=== PATIENT | male | born 1970 | race Caucasian/White ===

== ENCOUNTER 2018-06-25 23:10 | Emergency (ER) | payer SELFPAY ==
[2018-06-25] MEDS ORDERED: Sodium Chloride 0.9% 1,000 ML IV ONE (23:18)
--- NOTE | 2018-06-25 23:22 | EDM.PDOC ---
ED HPI GENERAL MEDICAL PROBLEM - General Chief Complaint: Diabetic Complaint Stated Complaint: DIABETIC Time Seen by Provider: 06/25/18 23:13 - History of Present Illness INITIAL COMMENTS - FREE TEXT/NARRATIVE: HISTORY AND PHYSICAL: History of present illness: Patient's 47-year-old white male history of insulin dependent diabetes who presents with a concern of hypoglycemic episode paramedics were notified glucagon was given on arrival here patient is alert and oriented 3 with no complaints Review of systems: As per history of present illness and below otherwise all systems reviewed and negative. Past medical history: As per history of present illness and as reviewed below otherwise noncontributory. Surgical history: As per history of present illness and as reviewed below otherwise noncontributory. Social history: No reported history of drug or alcohol abuse. Family history: As per history of present illness and as reviewed below otherwise noncontributory. Physical exam: HEENT: Atraumatic, normocephalic, pupils reactive, negative for conjunctival pallor or scleral icterus, mucous membranes moist, throat clear, neck supple, nontender, trachea midline. Lungs: Clear to auscultation, breath sounds equal bilaterally, chest nontender. Heart: S1S2, regular, negative for clicks, rubs, or JVD. Abdomen: Soft, nondistended, nontender. Negative for masses or hepatosplenomegaly. Negative for costovertebral tenderness. Pelvis: Stable nontender. Genitourinary: Deferred. Rectal: Deferred. Extremities: Atraumatic, negative for cords or calf pain. Neurovascular unremarkable. Neuro: Awake, alert, oriented. Cranial nerves II through XII unremarkable. Cerebellum unremarkable. Motor and sensory unremarkable throughout. Exam nonfocal. Diagnostics: CBC CMP Therapeutics: Saline 1 L bolus Impression: 1 hypoglycemic episode (insulin reaction) Definitive disposition and diagnosis as appropriate pending reevaluation and review of above. - Related Data Allergies Allergy/AdvReac Type Severity Reaction Status Date / Time morphine Allergy Hives Verified 06/25/18 23:24 pregabalin [From Lyrica] Allergy Arrhythmias Verified 06/25/18 23:24 prochlorperazine Allergy Arrhythmias Verified 06/25/18 23:24 [From Compazine] venlafaxine [From Effexor] Allergy Hypotension Verified 06/25/18 23:24 Home Meds: Home Meds Aspirin 1 tab PO DAILY 06/25/18 [History] Calcium Carbonate [Calcium] 1 gm PO DAILY 06/25/18 [History] Losartan Potassium 1 tab PO DAILY 06/25/18 [History] Magnesium Oxide [Magnesium] 1 tab PO DAILY 06/25/18 [History] Testosterone Undecanoate [Aveed] 2 mg IM ASDIRECTED 06/25/18 [History] amLODIPine Besylate [Amlodipine Besylate] 1 tab PO DAILY 06/25/18 [History] cloNIDine [Catapres] 1 tab PO BID 06/25/18 [History] oxyCODONE HCl/Acetaminophen [Oxycodon-Acetaminophen 7.5-300] 0 mg PO ASDIRECTED 06/25/18 [History] ED ROS GENERAL - Review of Systems Review Of Systems: ROS reveals no pertinent complaints other than HPI. ED EXAM GENERAL NO PERIP PULSE - Physical Exam Exam: See Below (See dictation) Course - Vital Signs Last Recorded V/S: Last Vital Signs Temp 36.4 C 06/25/18 23:10 Pulse 109 H 06/25/18 23:10 Resp 18 06/25/18 23:10 BP 189/97 H 06/25/18 23:10 Pulse Ox 99 06/25/18 23:10 - Orders/Labs/Meds Labs: Laboratory Tests 06/25/18 06/25/18 Range/Units 23:30 23:30 WBC 7.74 (4.0-11.0) K/uL RBC 4.01 L (4.50-5.90) M/uL Hgb 11.9 L (13.0-17.0) g/dL Hct 33.6 L (38.0-50.0) % MCV 83.8 (80.0-98.0) fL MCH 29.7 (27.0-32.0) pg MCHC 35.4 (31.0-37.0) g/dL RDW Std Deviation 39.0 (28.0-62.0) fl RDW Coeff of Daria 13 (11.0-15.0) % Plt Count 283 (150-400) K/uL MPV 10.70 (7.40-12.00) fL Neut % (Auto) 70.9 (48.0-80.0) % Lymph % (Auto) 21.7 (16.0-40.0) % [place] % (Auto) 5.7 (0.0-15.0) % Eos % (Auto) 1.4 (0.0-7.0) % Baso % (Auto) 0.3 (0.0-1.5) % Neut # (Auto) 5.5 (1.4-5.7) K/uL Lymph # (Auto) 1.7 (0.6-2.4) K/uL [place] # (Auto) 0.4 (0.0-0.8) K/uL Eos # (Auto) 0.1 (0.0-0.7) K/uL Baso # (Auto) 0.0 (0.0-0.1) K/uL Nucleated RBC % 0.0 /100WBC Nucleated RBCs # 0 K/uL Sodium 140 (136-148) mmol/L Potassium 4.0 (3.5-5.1) mmol/L Chloride 105 (98-107) mmol/L Carbon Dioxide 26.2 (21.0-32.0) mmol/L BUN 26 H (7.0-18.0) mg/dL Creatinine 2.9 H (0.8-1.3) mg/dL Est Cr Clr Drug Dosing 36.35 mL/min Estimated GFR (MDRD) 23.6 ml/min Glucose 200 H (74-106) mg/dL Calcium 8.3 L (8.5-10.1) mg/dL Total Bilirubin 0.6 (0.2-1.0) mg/dL AST 20 (15-37) IU/L ALT 27 (14-63) IU/L Alkaline Phosphatase 168 H (46-116) U/L Total Protein 6.9 (6.4-8.2) g/dL Albumin 3.4 (3.4-5.0) g/dL Globulin 3.5 (2.6-4.0) g/dL Albumin/Globulin Ratio 1.0 (0.9-1.6) Meds: Medications Discontinued Medications Generic Name Dose Route Start Last Admin Trade Name Freq PRN Reason Stop Dose Admin Sodium Chloride 1,000 mls @ 999 mls/hr 06/25/18 23:18 06/25/18 23:39 Normal Saline IV 06/26/18 00:18 999 mls/hr .Bolus ONE Administration Departure - Departure Time of Disposition: 00:41 Disposition: Home, Self-Care 01 Condition: Good Clinical Impression: Hypoglycemia, Insulin reaction - Discharge Information Forms: ED Department Discharge Additional Instructions: The following information is given to patients seen in the emergency department who are being discharged to home. This information is to outline your options for follow-up care. We provide all patients seen in our emergency department with a follow-up referral. The need for follow-up, as well as the timing and circumstances, are variable depending upon the specifics of your emergency department visit. If you don't have a primary care physician on staff, we will provide you with a referral. We always advise you to contact your personal physician following an emergency department visit to inform them of the circumstance of the visit and for follow-up with them and/or the need for any referrals to a consulting specialist. The emergency department will also refer you to a specialist when appropriate. This referral assures that you have the opportunity for followup care with a specialist. All of these measure are taken in an effort to provide you with optimal care, which includes your followup. Under all circumstances we always encourage you to contact your private physician who remains a resource for coordinating your care. When calling for followup care, please make the office aware that this follow-up is from your recent emergency room visit. If for any reason you are refused follow-up, please contact the [facility] emergency department at and asked to speak to the emergency department charge nurse. Accu-Chek 4 times a day as discussed diet as discussed follow-up primary medical doctor return as needed as discussed
== END 2018-06-26 01:10 | disposition home or self-care (01) ==
LOC: MW.ED 23:10
DX: E11.649 Type 2 diabetes mellitus with hypoglycemia without coma (principal); Z88.5 Allergy status to narcotic agent; Z88.8 Allergy status to other drugs, medicaments and biological substances; Z79.82 Long term (current) use of aspirin; Z79.899 Other long term (current) drug therapy
CPT/HCPCS: 36415; 80053; 85025; 96360; 96361; 99283; J7040

== ENCOUNTER 2018-06-30 01:22 | Emergency (ER) | payer SELFPAY ==
[2018-06-30] MEDS ORDERED: Sodium Chloride 0.9% 1,000 ML IV ONE (01:29)
--- NOTE | 2018-06-30 01:35 | EDM.PDOC ---
ED HPI GENERAL MEDICAL PROBLEM - General Chief Complaint: Cardiovascular Problem Stated Complaint: HEAT RACING Time Seen by Provider: 06/30/18 01:35 Source of Information: Reports: Patient - History of Present Illness INITIAL COMMENTS - FREE TEXT/NARRATIVE: HISTORY AND PHYSICAL: History of present illness: [Patient with history of anxiety presents with "racing heart" Prior to arrival he did take his Xanax, after arrival to the emergency room he still states that his heart is racing and he feels short of breath however he is in no distress and heart rate is 109 on EKG Has no other symptoms such as fever nausea vomiting diarrhea constipation chest pain shortness breath headache dizziness palpitation no bowel or urine symptoms He has been sleeping comfortably since shortly after arrival, he has refused insulin we did find that his glucose level was 500 he allowed 3 units of insulin subcutaneous and then refused further insulin ] Review of systems: As per history of present illness and below otherwise all systems reviewed and negative. Past medical history: As per history of present illness and as reviewed below otherwise noncontributory. Surgical history: As per history of present illness and as reviewed below otherwise noncontributory. Social history: No reported history of drug or alcohol abuse. Family history: As per history of present illness and as reviewed below otherwise noncontributory. Physical exam: HEENT: Atraumatic, normocephalic, pupils reactive, negative for conjunctival pallor or scleral icterus, mucous membranes moist, throat clear, neck supple, nontender, trachea midline. Lungs: Clear to auscultation, breath sounds equal bilaterally, chest nontender. Heart: S1S2, regular, negative for clicks, rubs, or JVD. Abdomen: Soft, nondistended, nontender. Negative for masses or hepatosplenomegaly. Negative for costovertebral tenderness. Pelvis: Stable nontender. Genitourinary: Deferred. Rectal: Deferred. Extremities: Atraumatic, negative for cords or calf pain. Neurovascular unremarkable. Neuro: Awake, alert, oriented. Cranial nerves II through XII unremarkable. Cerebellum unremarkable. Motor and sensory unremarkable throughout. Exam nonfocal. Diagnostics: [cbc, cmp, ua, trop, inr chest 1V ekg ] Therapeutics: Regular insulin 10 units IV/10 units subcutaneous-patient refused allowing 3 units of regular insulin subcutaneous Normal saline] Impression: [Hyperglycemia-patient refused treatment Hypertension-improved/resolved Anxiety]-improved/resolved Definitive disposition and diagnosis as appropriate pending reevaluation and review of above. - Related Data Allergies Allergy/AdvReac Type Severity Reaction Status Date / Time morphine Allergy Hives Verified 06/30/18 01:30 pregabalin [From Lyrica] Allergy Arrhythmias Verified 06/30/18 01:30 prochlorperazine Allergy Arrhythmias Verified 06/30/18 01:30 [From Compazine] venlafaxine [From Effexor] Allergy Hypotension Verified 06/30/18 01:30 Home Meds: Home Meds Aspirin 1 tab PO DAILY 06/25/18 [History] Calcium Carbonate [Calcium] 1 gm PO DAILY 06/25/18 [History] Losartan Potassium 1 tab PO DAILY 06/25/18 [History] Magnesium Oxide [Magnesium] 1 tab PO DAILY 06/25/18 [History] Testosterone Undecanoate [Aveed] 2 mg IM ASDIRECTED 06/25/18 [History] amLODIPine Besylate [Amlodipine Besylate] 1 tab PO DAILY 06/25/18 [History] cloNIDine [Catapres] 1 tab PO BID 06/25/18 [History] oxyCODONE HCl/Acetaminophen [Oxycodon-Acetaminophen 7.5-300] 0 mg PO ASDIRECTED 06/25/18 [History] Insulin Glarg,Human.Rec.Analog [Lantus] 20 units SQ DAILY 06/30/18 [History] Past Medical History Cardiovascular History: Reports: Hypertension Genitourinary History: Reports: Renal Disease Endocrine/Metabolic History: Reports: Diabetes, Type I - Infectious Disease History Infectious Disease History: Reports: MRSA - Past Surgical History HEENT Surgical History: Reports: Eye Surgery, Naso-Sinus Surgery GI Surgical History: Reports: Cholecystectomy Musculoskeletal Surgical History: Reports: Carpal Tunnel Social & Family History - Family History Family Medical History: Noncontributory ED ROS GENERAL - Review of Systems Review Of Systems: See Below ED EXAM, GENERAL - Physical Exam Exam: See Below Course - Vital Signs Last Recorded V/S: Last Vital Signs Temp 98.5 F 06/30/18 01:22 Pulse 87 06/30/18 02:37 Resp 18 06/30/18 02:37 BP 125/67 06/30/18 02:37 Pulse Ox 97 06/30/18 02:37 - Orders/Labs/Meds Orders: Active Orders 24 hr Category Date Time Status EKG Documentation Completion [RC] STAT Care 06/30/18 01:30 Active Labs: Laboratory Tests 06/30/18 06/30/18 06/30/18 Range/Units 02:00 02:00 02:00 WBC 6.68 (4.0-11.0) K/uL RBC 3.81 L (4.50-5.90) M/uL Hgb 11.3 L (13.0-17.0) g/dL Hct 32.5 L (38.0-50.0) % MCV 85.3 (80.0-98.0) fL MCH 29.7 (27.0-32.0) pg MCHC 34.8 (31.0-37.0) g/dL RDW Std Deviation 37.1 (28.0-62.0) fl RDW Coeff of Daria 12 (11.0-15.0) % Plt Count 226 (150-400) K/uL MPV 11.60 (7.40-12.00) fL Neut % (Auto) 66.6 (48.0-80.0) % Lymph % (Auto) 23.4 (16.0-40.0) % [place] % (Auto) 8.1 (0.0-15.0) % Eos % (Auto) 1.6 (0.0-7.0) % Baso % (Auto) 0.3 (0.0-1.5) % Neut # (Auto) 4.5 (1.4-5.7) K/uL Lymph # (Auto) 1.6 (0.6-2.4) K/uL [place] # (Auto) 0.5 (0.0-0.8) K/uL Eos # (Auto) 0.1 (0.0-0.7) K/uL Baso # (Auto) 0.0 (0.0-0.1) K/uL INR 0.90 Sodium 135 L (136-148) mmol/L Potassium 4.8 (3.5-5.1) mmol/L Chloride 101 (98-107) mmol/L Carbon Dioxide 28.9 (21.0-32.0) mmol/L BUN 26 H (7.0-18.0) mg/dL Creatinine 2.7 H (0.8-1.3) mg/dL Est Cr Clr Drug Dosing 39.05 mL/min Estimated GFR (MDRD) 25.7 ml/min Glucose 516 H* (74-106) mg/dL Calcium 7.8 L (8.5-10.1) mg/dL Total Bilirubin 0.6 (0.2-1.0) mg/dL AST 26 (15-37) IU/L ALT 33 (14-63) IU/L Alkaline Phosphatase 167 H (46-116) U/L Troponin I < 0.050 (0.000-0.056) ng/mL Total Protein 6.1 L (6.4-8.2) g/dL Albumin 2.9 L (3.4-5.0) g/dL Globulin 3.2 (2.6-4.0) g/dL Albumin/Globulin Ratio 0.9 (0.9-1.6) Meds: Medications Discontinued Medications Generic Name Dose Route Start Last Admin Trade Name Freq PRN Reason Stop Dose Admin Clonidine HCl 0.1 mg 06/30/18 01:37 06/30/18 02:48 Catapres PO 06/30/18 01:38 Not Given ONETIME ONE Sodium Chloride 1,000 mls @ 999 mls/hr 06/30/18 01:29 06/30/18 02:03 Normal Saline IV 06/30/18 02:29 999 mls/hr STAT ONE Administration Insulin Human Regular 10 unit 06/30/18 02:31 06/30/18 02:46 Novolin R IVPUSH 06/30/18 02:32 Not Given ONETIME ONE Protocol Insulin Human Regular 10 unit 06/30/18 02:31 06/30/18 02:45 Novolin R SUBCUT 06/30/18 02:32 3 units NOW STA Administration Protocol Departure - Departure Time of Disposition: 03:49 Disposition: Home, Self-Care 01 Condition: Good Clinical Impression: Hyperglycemia, Anxiety, Hypertension Forms: ED Department Discharge Additional Instructions: The following information is given to patients seen in the emergency department who are being discharged to home. This information is to outline your options for follow-up care. We provide all patients seen in our emergency department with a follow-up referral. The need for follow-up, as well as the timing and circumstances, are variable depending upon the specifics of your emergency department visit. If you don't have a primary care physician on staff, we will provide you with a referral. We always advise you to contact your personal physician following an emergency department visit to inform them of the circumstance of the visit and for follow-up with them and/or the need for any referrals to a consulting specialist. The emergency department will also refer you to a specialist when appropriate. This referral assures that you have the opportunity for follow-up care with a specialist. All of these measure are taken in an effort to provide you with optimal care, which includes your follow-up. Under all circumstances we always encourage you to contact your private physician who remains a resource for coordinating your care. When calling for follow-up care, please make the office aware that this follow-up is from your recent emergency room visit. If for any reason you are refused follow-up, please contact the [facility] emergency department at and asked to speak to the emergency department charge nurse. - My Orders Last 24 Hours: My Active Orders 06/30/18 01:30 EKG Documentation Completion [RC] STAT - Assessment/Plan Last 24 Hours: My Active Orders 06/30/18 01:30 EKG Documentation Completion [RC] STAT
[2018-06-30] MEDS ORDERED: cloNIDine 0.1 MG Tab PO ONE (01:37)
--- NOTE | 2018-06-30 02:15 | CR ---
INDICATION: Chest pain and shortness of breath COMPARISON: None available. FINDINGS: An erect single view of the chest was obtained at 0135 hours. The lungs are clear. No focal or diffuse infiltrates are present. The heart is normal in size. The mediastinum is normal in appearance. The osseous structures are normal in appearance for the patient`s age. IMPRESSION: Normal chest single view. Dictated by David Nur MD @ Jun 30 2018 2:12AM Signed by Dr. David Nur @ Jun 30 2018 2:13AM
[2018-06-30 02:29] LABS: CHLORIDE,CL 101 mmol/L (98-107); SODIUM,NA 135 mmol/L (136-148)
[2018-06-30] MEDS ORDERED: Insulin Regular, Human 100 Units/ML 10 ML Vial IVPUSH ONE (02:31)
[2018-06-30] MEDS ORDERED: Insulin Regular, Human 100 Units/ML 10 ML Vial SUBCUT STA (02:31)
== END 2018-06-30 04:00 | disposition home or self-care (01) ==
LOC: MW.ED 01:22
DX: E10.65 Type 1 diabetes mellitus with hyperglycemia (principal); I10 Essential (primary) hypertension; Z88.6 Allergy status to analgesic agent; Z88.8 Allergy status to other drugs, medicaments and biological substances; Z79.82 Long term (current) use of aspirin; Z79.899 Other long term (current) drug therapy
CPT/HCPCS: 36415; 71045; 80053; 84484; 85025; 85610; 93005; 96360; 99285; J7040; J1815-GY

== ENCOUNTER 2018-07-07 18:58 | Observation (INO) | payer MEDICAID ==
[2018-07-07] MEDS ORDERED: Ondansetron 4 MG/2 ML SDV IVPUSH ONE (19:11)
[2018-07-07] MEDS ORDERED: HYDROmorphone 1 MG/ML Syringe IVPUSH ONE ×2 (19:11→20:42)
[2018-07-07] MEDS ORDERED: Sodium Chloride 0.9% 1,000 ML IV ONE (19:11)
[2018-07-07] MEDS ORDERED: Pantoprazole 40 MG Vial IVPUSH ONE (19:11)
[2018-07-07] MEDS ORDERED: Sodium Chloride 0.9% 2.5 ML Syringe FLUSH PRN (19:11)
[2018-07-07] MEDS ORDERED: Sodium Chloride 0.9% 10 ML Syringe FLUSH PRN (19:11)
--- NOTE | 2018-07-07 19:16 | EDM.PDOC ---
ED HPI GENERAL MEDICAL PROBLEM - General Chief Complaint: Diabetic Complaint Stated Complaint: STOMACH PAIN Time Seen by Provider: 07/07/18 19:04 - History of Present Illness INITIAL COMMENTS - FREE TEXT/NARRATIVE: HISTORY AND PHYSICAL: History of present illness: The patient is a 48 y/o male with a history of type 1 diabetes who gives himself regular insulin dosing as well as sliding scale and also history of hypertension and renal insufficiency, stating that his last GFR was in the 20s, who presents with sudden onset of upper abdominal pain associated with nausea but He was at work this afternoon. The patient says he did not eat any new foods and has no ill contacts and was having a normal day with he began to have upper abdominal discomfort and feeling 6 to his stomach while at work. His boss gave him some herbal therapy that he tried and did not improve. The patient's only GI history is of a cholecystectomy and he has no other issues and takes no medications for that daily. He does have a history of neuropathy and takes daily oxycodone. He does not live here locally and is from [facility] where he has a provider that he sees on a regular basis and he tells me his last hemoglobin A1c was in the mid 8's. The patient describes the pain as deep achy and crampy and it encompasses the entire upper abdominal area and does not localize right or left and there is no lower abdominal pain. He says he feels a little bit bloated and he has not vomited but he feels very nauseated. His been having normal bowel movements without diarrhea black or bloody stools has no flank pain. He has no urinary complaints. He does not take any [id number] meds other than the urge given to him by his boss. He's had no recent fevers upper respiratory symptoms chest pain or shortness of breath. Review of systems: As per history of present illness and below otherwise all systems reviewed and negative. Past medical history: As per history of present illness and as reviewed below otherwise noncontributory. Surgical history: As per history of present illness and as reviewed below otherwise noncontributory. Social history: No reported history of drug or alcohol abuse. Family history: As per history of present illness and as reviewed below otherwise noncontributory. Physical exam: General: Well-developed well-nourished man who is nontoxic and vital signs were noted by me. HEENT: Atraumatic, normocephalic, , negative for conjunctival pallor or scleral icterus, mucous membranes tacky, throat clear, neck supple, nontender, trachea midline. Lungs: Clear to auscultation, breath sounds equal bilaterally, chest nontender. Heart: S1S2, regular rate and rhythm no overt murmurs Abdomen: Soft, nondistended, no sounds are slightly hypoactive and there is no tympany on percussion. There is only minimal tenderness in the upper abdominal area on palpation without rebound or guarding and it is difficult to reproduce the pain. The pain does not localize right or left Negative for masses or hepatosplenomegaly. Negative for costovertebral tenderness. Pelvis: Stable nontender. Genitourinary: Deferred. Rectal: Deferred. Extremities: Atraumatic, negative for cords or calf pain. Neurovascular unremarkable. Neuro: Awake, alert, oriented. Cranial nerves II through XII unremarkable. Cerebellum unremarkable. Motor and sensory unremarkable throughout. Exam nonfocal. Diagnostics: EKG CBC CMP amylase lipase venous blood gas sampling ketones H pylori UA CT scan of the abdomen and pelvis urine culture lactic acid Therapeutics: IV fluids Zofran Protonix Dilaudid Rocephin Patient says he did not take his evening dose of blood pressure medications and this is why he believes his blood pressure is elevated. I will give him a dose of clonidine I discussed with the patient all testing results and have told him that there is no answer for his pain and discomfort other than the distended stomach without bowel obstruction. He is rolling around the bed saying that the pain is not being treated by the Dilaudid. This patient is a chronic pain medication user with Percocet 7.5 on a regular basis for his neuropathy. I will add a lactate level and discuss this case with our surgeon Dr. Abraham. His blood pressure is still elevated because of this. I have offered him observation admission with the hospitalist and he is agreeable. 2046: Case was discussed with Dr. Abraham recommends adding a lactate level and admission to the hospitalist for observation. She does not feel that anything on the CAT scan her labs are worrisome from a surgical standpoint. 2100: Case was discussed with Dr. Moise who is aware that I added a urine culture and would like to treat the patient as a cystitis with abdominal pain. He is aware that the UDS and lactate levels are pending and I will give him a dose of Rocephin. Impression: Persistent abdominal pain, cystitis history of type 1 diabetes Definitive disposition and diagnosis as appropriate pending reevaluation and review of above. Abdominal Pain Score (Numeric/FACES): 8 - Related Data Allergies Allergy/AdvReac Type Severity Reaction Status Date / Time morphine Allergy Hives Verified 07/07/18 19:03 pregabalin [From Lyrica] Allergy Arrhythmias Verified 07/07/18 19:03 prochlorperazine Allergy Arrhythmias Verified 07/07/18 19:03 [From Compazine] venlafaxine [From Effexor] Allergy Hypotension Verified 07/07/18 19:03 Home Meds: Home Meds Aspirin 1 tab PO DAILY 06/25/18 [History] Calcium Carbonate [Calcium] 1 gm PO DAILY 06/25/18 [History] Losartan Potassium 1 tab PO DAILY 06/25/18 [History] Magnesium Oxide [Magnesium] 1 tab PO DAILY 06/25/18 [History] Testosterone Undecanoate [Aveed] 2 mg IM ASDIRECTED 06/25/18 [History] amLODIPine Besylate [Amlodipine Besylate] 1 tab PO DAILY 06/25/18 [History] cloNIDine [Catapres] 1 tab PO BID 06/25/18 [History] oxyCODONE HCl/Acetaminophen [Oxycodon-Acetaminophen 7.5-300] 0 mg PO ASDIRECTED 06/25/18 [History] Insulin Glarg,Human.Rec.Analog [Lantus] 20 units SQ DAILY 06/30/18 [History] Past Medical History Cardiovascular History: Reports: Hypertension Genitourinary History: Reports: Renal Disease Endocrine/Metabolic History: Reports: Diabetes, Type I - Infectious Disease History Infectious Disease History: Reports: MRSA - Past Surgical History HEENT Surgical History: Reports: Eye Surgery, Naso-Sinus Surgery GI Surgical History: Reports: Cholecystectomy Musculoskeletal Surgical History: Reports: Carpal Tunnel Social & Family History - Family History Family Medical History: Noncontributory ED ROS GENERAL - Review of Systems Review Of Systems: ROS reveals no pertinent complaints other than HPI. ED EXAM GENERAL NO PERIP PULSE - Physical Exam Exam: See Below (See dictation) Course - Vital Signs Last Recorded V/S: Last Vital Signs Temp 36.1 C 07/07/18 19:54 Pulse 75 07/07/18 19:54 Resp 18 07/07/18 19:54 BP 230/115 H 07/07/18 20:38 Pulse Ox 96 07/07/18 19:54 - Orders/Labs/Meds Orders: Active Orders 24 hr Category Date Time Status Patient Status [ADT] Stat ADT 07/07/18 21:00 Ordered Blood Glucose Check, Bedside [RC] ONETIME Care 07/07/18 19:10 Active EKG Documentation Completion [RC] STAT Care 07/07/18 19:10 Active CULTURE URINE [RM] Stat Lab 07/07/18 19:20 Received DRUG SCREEN, URINE [URCHEM] Stat Lab 07/07/18 19:22 Received LACTATE WITH REFLEX [BG] Stat Lab 07/07/18 20:39 Ordered Sodium Chloride 0.9% [Normal Saline] 1,000 ml Med 07/07/18 20:45 Active IV ASDIRECTED Sodium Chloride 0.9% [Saline Flush] Med 07/07/18 19:11 Active 10 ml FLUSH ASDIRECTED PRN Sodium Chloride 0.9% [Saline Flush] Med 07/07/18 19:11 Active 2.5 ml FLUSH ASDIRECTED PRN cefTRIAXone [Rocephin in Dextrose,Iso-Osm 1 GM/50 ML] 1 Med 07/07/18 20:59 Ordered gm Premix Bag 1 bag IV ONETIME Saline Lock Insert [OM.PC] Stat Oth 07/07/18 19:10 Ordered Medication Orders Sodium Chloride (Normal Saline) 1,000 mls @ 150 mls/hr IV ASDIRECTED [facility] Last Admin: 07/07/18 20:52 Dose: 150 mls/hr Sodium Chloride (Saline Flush) 10 ml FLUSH ASDIRECTED PRN PRN Reason: Keep Vein Open Sodium Chloride (Saline Flush) 2.5 ml FLUSH ASDIRECTED PRN PRN Reason: Keep Vein Open Labs: Laboratory Tests 07/07/18 07/07/18 07/07/18 Range/Units 19:10 19:10 19:10 WBC 9.40 (4.0-11.0) K/uL RBC 4.49 L (4.50-5.90) M/uL Hgb 13.3 (13.0-17.0) g/dL Hct 36.9 L (38.0-50.0) % MCV 82.2 (80.0-98.0) fL MCH 29.6 (27.0-32.0) pg MCHC 36.0 (31.0-37.0) g/dL RDW Std Deviation 38.0 (28.0-62.0) fl RDW Coeff of Daria 13 (11.0-15.0) % Plt Count 210 (150-400) K/uL MPV 11.30 (7.40-12.00) fL Neut % (Auto) 72.7 (48.0-80.0) % Lymph % (Auto) 22.0 (16.0-40.0) % [place] % (Auto) 4.5 (0.0-15.0) % Eos % (Auto) 0.6 (0.0-7.0) % Baso % (Auto) 0.2 (0.0-1.5) % Neut # (Auto) 6.8 H (1.4-5.7) K/uL Lymph # (Auto) 2.1 (0.6-2.4) K/uL [place] # (Auto) 0.4 (0.0-0.8) K/uL Eos # (Auto) 0.1 (0.0-0.7) K/uL Baso # (Auto) 0.0 (0.0-0.1) K/uL Nucleated RBC % 0.0 /100WBC Nucleated RBCs # 0 K/uL VBG pH 7.35 (7.31-7.41) VBG pCO2 49 H (35-45) mmHG VBG pO2 40 (30-40) mmHG VBG HCO3 27 (22-30) mEq/L VBG Total CO2 25 L (41-51) mmol/L VBG Base Excess 0.5 (-3.0-3.0) Sodium 136 (136-148) mmol/L Potassium 4.1 (3.5-5.1) mmol/L Chloride 98 (98-107) mmol/L Carbon Dioxide 26.0 (21.0-32.0) mmol/L BUN 25 H (7.0-18.0) mg/dL Creatinine 2.6 H (0.8-1.3) mg/dL Est Cr Clr Drug Dosing 40.12 mL/min Estimated GFR (MDRD) 26.7 ml/min Glucose 346 H (74-106) mg/dL Calcium 9.1 (8.5-10.1) mg/dL Total Bilirubin 0.8 (0.2-1.0) mg/dL AST 24 (15-37) IU/L ALT 39 (14-63) IU/L Alkaline Phosphatase 178 H (46-116) U/L Troponin I (0.000-0.056) ng/mL Total Protein 7.9 (6.4-8.2) g/dL Albumin 3.8 (3.4-5.0) g/dL Globulin 4.1 H (2.6-4.0) g/dL Albumin/Globulin Ratio 0.9 (0.9-1.6) Amylase 39 (25-115) U/L Lipase 35 L (73-393) U/L Urine Color Urine Appearance Urine pH (5.0-8.0) Ur Specific [place] (1.001-1.035) Urine Protein (NEGATIVE) mg/dL Urine Glucose (UA) (NEGATIVE) mg/dL Urine Ketones (NEGATIVE) mg/dL Urine Occult Blood (NEGATIVE) Urine Nitrite (NEGATIVE) Urine Bilirubin (NEGATIVE) Urine Urobilinogen (<2.0) EU/dL Ur Leukocyte Esterase (NEGATIVE) Urine RBC (0-2/HPF) Urine WBC (0-5/HPF) Ur Epithelial Cells (NONE-FEW) Urine Bacteria (NEGATIVE) Ketones (NEG) H. pylori IgG Antibody (NEG) 07/07/18 07/07/18 07/07/18 Range/Units 19:10 19:10 19:20 WBC (4.0-11.0) K/uL RBC (4.50-5.90) M/uL Hgb (13.0-17.0) g/dL Hct (38.0-50.0) % MCV (80.0-98.0) fL MCH (27.0-32.0) pg MCHC (31.0-37.0) g/dL RDW Std Deviation (28.0-62.0) fl RDW Coeff of Daria (11.0-15.0) % Plt Count (150-400) K/uL MPV (7.40-12.00) fL Neut % (Auto) (48.0-80.0) % Lymph % (Auto) (16.0-40.0) % [place] % (Auto) (0.0-15.0) % Eos % (Auto) (0.0-7.0) % Baso % (Auto) (0.0-1.5) % Neut # (Auto) (1.4-5.7) K/uL Lymph # (Auto) (0.6-2.4) K/uL [place] # (Auto) (0.0-0.8) K/uL Eos # (Auto) (0.0-0.7) K/uL Baso # (Auto) (0.0-0.1) K/uL Nucleated RBC % /100WBC Nucleated RBCs # K/uL VBG pH (7.31-7.41) VBG pCO2 (35-45) mmHG VBG pO2 (30-40) mmHG VBG HCO3 (22-30) mEq/L VBG Total CO2 (41-51) mmol/L VBG Base Excess (-3.0-3.0) Sodium (136-148) mmol/L Potassium (3.5-5.1) mmol/L Chloride (98-107) mmol/L Carbon Dioxide (21.0-32.0) mmol/L BUN (7.0-18.0) mg/dL Creatinine (0.8-1.3) mg/dL Est Cr Clr Drug Dosing mL/min Estimated GFR (MDRD) ml/min Glucose (74-106) mg/dL Calcium (8.5-10.1) mg/dL Total Bilirubin (0.2-1.0) mg/dL AST (15-37) IU/L ALT (14-63) IU/L Alkaline Phosphatase (46-116) U/L Troponin I (0.000-0.056) ng/mL Total Protein (6.4-8.2) g/dL Albumin (3.4-5.0) g/dL Globulin (2.6-4.0) g/dL Albumin/Globulin Ratio (0.9-1.6) Amylase (25-115) U/L Lipase (73-393) U/L Urine Color YELLOW Urine Appearance CLEAR Urine pH 6.0 (5.0-8.0) Ur Specific [place] 1.010 (1.001-1.035) Urine Protein 100 H (NEGATIVE) mg/dL Urine Glucose (UA) >=1000 (NEGATIVE) mg/dL Urine Ketones NEGATIVE (NEGATIVE) mg/dL Urine Occult Blood SMALL H (NEGATIVE) Urine Nitrite NEGATIVE (NEGATIVE) Urine Bilirubin NEGATIVE (NEGATIVE) Urine Urobilinogen 0.2 (<2.0) EU/dL Ur Leukocyte Esterase NEGATIVE (NEGATIVE) Urine RBC 6-8 (0-2/HPF) Urine WBC 10-15 (0-5/HPF) Ur Epithelial Cells MODERATE (NONE-FEW) Urine Bacteria FEW (NEGATIVE) Ketones NEGATIVE (NEG) H. pylori IgG Antibody NEGATIVE (NEG) 07/07/18 Range/Units 20:01 WBC (4.0-11.0) K/uL RBC (4.50-5.90) M/uL Hgb (13.0-17.0) g/dL Hct (38.0-50.0) % MCV (80.0-98.0) fL MCH (27.0-32.0) pg MCHC (31.0-37.0) g/dL RDW Std Deviation (28.0-62.0) fl RDW Coeff of Daria (11.0-15.0) % Plt Count (150-400) K/uL MPV (7.40-12.00) fL Neut % (Auto) (48.0-80.0) % Lymph % (Auto) (16.0-40.0) % [place] % (Auto) (0.0-15.0) % Eos % (Auto) (0.0-7.0) % Baso % (Auto) (0.0-1.5) % Neut # (Auto) (1.4-5.7) K/uL Lymph # (Auto) (0.6-2.4) K/uL [place] # (Auto) (0.0-0.8) K/uL Eos # (Auto) (0.0-0.7) K/uL Baso # (Auto) (0.0-0.1) K/uL Nucleated RBC % /100WBC Nucleated RBCs # K/uL VBG pH (7.31-7.41) VBG pCO2 (35-45) mmHG VBG pO2 (30-40) mmHG VBG HCO3 (22-30) mEq/L VBG Total CO2 (41-51) mmol/L VBG Base Excess (-3.0-3.0) Sodium (136-148) mmol/L Potassium (3.5-5.1) mmol/L Chloride (98-107) mmol/L Carbon Dioxide (21.0-32.0) mmol/L BUN (7.0-18.0) mg/dL Creatinine (0.8-1.3) mg/dL Est Cr Clr Drug Dosing mL/min Estimated GFR (MDRD) ml/min Glucose (74-106) mg/dL Calcium (8.5-10.1) mg/dL Total Bilirubin (0.2-1.0) mg/dL AST (15-37) IU/L ALT (14-63) IU/L Alkaline Phosphatase (46-116) U/L Troponin I < 0.050 (0.000-0.056) ng/mL Total Protein (6.4-8.2) g/dL Albumin (3.4-5.0) g/dL Globulin (2.6-4.0) g/dL Albumin/Globulin Ratio (0.9-1.6) Amylase (25-115) U/L Lipase (73-393) U/L Urine Color Urine Appearance Urine pH (5.0-8.0) Ur Specific [place] (1.001-1.035) Urine Protein (NEGATIVE) mg/dL Urine Glucose (UA) (NEGATIVE) mg/dL Urine Ketones (NEGATIVE) mg/dL Urine Occult Blood (NEGATIVE) Urine Nitrite (NEGATIVE) Urine Bilirubin (NEGATIVE) Urine Urobilinogen (<2.0) EU/dL Ur Leukocyte Esterase (NEGATIVE) Urine RBC (0-2/HPF) Urine WBC (0-5/HPF) Ur Epithelial Cells (NONE-FEW) Urine Bacteria (NEGATIVE) Ketones (NEG) H. pylori IgG Antibody (NEG) Meds: Medications Generic Name Dose Route Start Last Admin Trade Name Freq PRN Reason Stop Dose Admin Sodium Chloride 1,000 mls @ 150 mls/hr 07/07/18 20:45 07/07/18 20:52 Normal Saline IV 150 mls/hr ASDIRECTED TIA Administration Sodium Chloride 10 ml 07/07/18 19:11 Saline Flush FLUSH ASDIRECTED PRN Keep Vein Open Sodium Chloride 2.5 ml 07/07/18 19:11 Saline Flush FLUSH ASDIRECTED PRN Keep Vein Open Discontinued Medications Generic Name Dose Route Start Last Admin Trade Name Freq PRN Reason Stop Dose Admin Clonidine HCl 0.1 mg 07/07/18 20:17 07/07/18 20:38 Catapres PO 07/07/18 20:18 0.1 mg ONETIME ONE Administration Hydromorphone HCl 1 mg 07/07/18 19:11 07/07/18 19:24 Dilaudid IVPUSH 07/07/18 19:12 1 mg ONETIME ONE Administration Hydromorphone HCl 1 mg 07/07/18 20:42 07/07/18 20:53 Dilaudid IVPUSH 07/07/18 20:43 1 mg ONETIME ONE Administration Sodium Chloride 1,000 mls @ 999 mls/hr 07/07/18 19:11 07/07/18 19:24 Normal Saline IV 07/07/18 20:11 999 mls/hr STAT ONE Administration Ondansetron HCl 4 mg 07/07/18 19:11 07/07/18 19:24 Zofran IVPUSH 07/07/18 19:12 4 mg ONETIME ONE Administration Pantoprazole Sodium 80 mg 07/07/18 19:11 07/07/18 19:24 Protonix Iv IVPUSH 07/07/18 19:12 80 mg .BOLUS ONE Administration Departure - Departure Time of Disposition: 21:02 Disposition: Refer to Observation Condition: Good Clinical Impression: Cystitis, Hyperglycemia Abdominal pain Qualifiers: Abdominal location: upper abdomen, unspecified Qualified Code(s): R10.10 - Upper abdominal pain, unspecified - Discharge Information Referrals: PCP,Unknown [Primary Care Provider] - Forms: ED Department Discharge - My Orders Last 24 Hours: My Active Orders 07/07/18 19:10 Blood Glucose Check, Bedside [RC] ONETIME EKG Documentation Completion [RC] STAT Saline Lock Insert [OM.PC] Stat 07/07/18 19:11 Sodium Chloride 0.9% [Saline Flush] 10 ml FLUSH ASDIRECTED PRN Sodium Chloride 0.9% [Saline Flush] 2.5 ml FLUSH ASDIRECTED PRN 07/07/18 19:20 CULTURE URINE [RM] Stat 07/07/18 19:22 DRUG SCREEN, URINE [URCHEM] Stat 07/07/18 20:39 LACTATE WITH REFLEX [BG] Stat 07/07/18 20:45 Sodium Chloride 0.9% [Normal Saline] 1,000 ml IV ASDIRECTED 07/07/18 20:59 cefTRIAXone [Rocephin in Dextrose,Iso-Osm 1 GM/50 ML] 1 gm Premix Bag 1 bag IV ONETIME 07/07/18 21:00 Patient Status [ADT] Stat - Assessment/Plan Last 24 Hours: My Active Orders 07/07/18 19:10 Blood Glucose Check, Bedside [RC] ONETIME EKG Documentation Completion [RC] STAT Saline Lock Insert [OM.PC] Stat 07/07/18 19:11 Sodium Chloride 0.9% [Saline Flush] 10 ml FLUSH ASDIRECTED PRN Sodium Chloride 0.9% [Saline Flush] 2.5 ml FLUSH ASDIRECTED PRN 07/07/18 19:20 CULTURE URINE [RM] Stat 07/07/18 19:22 DRUG SCREEN, URINE [URCHEM] Stat 07/07/18 20:39 LACTATE WITH REFLEX [BG] Stat 07/07/18 20:45 Sodium Chloride 0.9% [Normal Saline] 1,000 ml IV ASDIRECTED 07/07/18 20:59 cefTRIAXone [Rocephin in Dextrose,Iso-Osm 1 GM/50 ML] 1 gm Premix Bag 1 bag IV ONETIME 07/07/18 21:00 Patient Status [ADT] Stat
[2018-07-07] MEDS ORDERED: cloNIDine 0.1 MG Tab PO ONE ×2 (20:17→22:39)
--- NOTE | 2018-07-07 20:24 | CT ---
INDICATION: Upper abdominal pain, diabetes. TECHNIQUE: CT abdomen and pelvis without contrast. COMPARISON: None. FINDINGS: Lower chest: Unremarkable. Liver: Normal in contour without focal lesion. Gallbladder and bile ducts: Status post cholecystectomy with mild intrahepatic biliary dilatation. Normal diameter of the common duct. Pancreas: Moderate pancreatic atrophy. Spleen: Normal in size. No masses. Adrenal glands: Normal in size. No nodules. Kidneys: Normal in contour without hydronephrosis. 1 millimeter nonobstructing stone lower pole left kidney. GI tract: Moderate distention of the stomach without discrete abnormality. No dilated loops of large or small intestine. Moderate amount of stool within the colon. Appendix unremarkable. Vasculature: Atherosclerosis. Pelvis: Slight wall thickening gallbladder, probably due to incomplete distention. Calcification of the seminal vesicles. Bones: Degenerative disc disease L5-S1. IMPRESSION: 1. No dilated bowel or localizing inflammation 2. Status post cholecystectomy with mild intrahepatic biliary dilatation. This could represent postcholecystectomy physiology, however correlation with liver function studies suggested. If there is a cholestatic picture, MRCP may have improved characterization. Please note that all CT scans at this facility use dose modulation, iterative reconstruction, and/or weight-based dosing when appropriate to reduce radiation dose to as low as reasonably achievable. Dictated by Doron Fung MD @ Jul 07 2018 8:03PM Signed by Dr. Doron Fung @ Jul 07 2018 8:23PM
[2018-07-07] MEDS: Sodium Chloride 0.9% 1,000 ML IV SCH (20:52)
[2018-07-07] MEDS ORDERED: cefTRIAXone 1 GM in Premix Bag 1 BAG IV ONE (20:59)
--- NOTE | 2018-07-07 21:32 | PCM.HP ---
H&P History of Present Illness - General Date of Service: 07/07/18 Admit Problem/Dx: Admission Diagnosis/Problem Admission Diagnosis/Problem Abdominal pain - History of Present Illness Initial Comments - Free Text/Narative: 48 yo male with pmh of DM, HTN, diabetic nephropathy and neuropathy who presents with one day history of abdominal pain and nausea that started at 4 pm at work today. He describes the pain as burning in the midabdomen. that radiates to the upper, lower abdomen and flank. He denies any constipation or diarrhea. He denies any fevers. Abdominal Pain Score (Numeric/FACES): 8 - Related Data Allergies/Adverse Reactions: Allergies Allergy/AdvReac Type Severity Reaction Status Date / Time morphine Allergy Hives Verified 07/07/18 19:03 pregabalin [From Lyrica] Allergy Arrhythmias Verified 07/07/18 19:03 prochlorperazine Allergy Arrhythmias Verified 07/07/18 19:03 [From Compazine] venlafaxine [From Effexor] Allergy Hypotension Verified 07/07/18 19:03 Home Medications: Home Meds Aspirin 81 mg PO DAILY 06/25/18 [History] Calcium Carbonate [Calcium] 1,000 mg PO DAILY 06/25/18 [History] Losartan Potassium 25 mg PO DAILY 06/25/18 [History] Magnesium Oxide [Magnesium] 400 mg PO DAILY 06/25/18 [History] amLODIPine Besylate [Amlodipine Besylate] 10 mg PO DAILY 06/25/18 [History] Insulin Glarg,Human.Rec.Analog [Lantus] 30 units SQ DAILY 06/30/18 [History] cloNIDine [Catapres] 0.1 mg PO DAILY@1600 07/07/18 [History] cloNIDine [Catapres] 0.2 mg PO BID 07/07/18 [History] ALPRAZolam [Alprazolam] 0.5 mg PO BID PRN 07/08/18 [History] Ergocalciferol (Vitamin D2) [Vitamin D2] 50,000 unit PO WEEKLY 07/08/18 [History ] Insulin Lispro [HumaLOG] 6 units SUBCUT TIDAC 07/08/18 [History] Testosterone Cypionate [Depo-Testosterone] 200 mg IM Q14D 07/08/18 [History] oxyCODONE HCl [Oxycodone HCl] 20 mg PO .SIX TIMES DAILY 07/08/18 [History] Cephalexin [Keflex] 500 mg PO BID 2 Days #4 capsule 07/09/18 [Rx] Ondansetron [Zofran ODT] 4 mg PO Q6H PRN 5 Days #20 tab.dis 07/09/18 [Rx] Past Medical History Cardiovascular History: Reports: Hypertension Genitourinary History: Reports: Renal Disease Endocrine/Metabolic History: Reports: Diabetes, Type I - Infectious Disease History Infectious Disease History: Reports: MRSA - Past Surgical History HEENT Surgical History: Reports: Eye Surgery, Naso-Sinus Surgery GI Surgical History: Reports: Cholecystectomy Musculoskeletal Surgical History: Reports: Carpal Tunnel Social & Family History - Family History Family Medical History: Noncontributory - Tobacco Use Smoking Status *Q: Never Smoker - Caffeine Use Caffeine Use: Reports: Coffee H&P Review of Systems - Review of Systems: Review Of Systems: ROS reveals no pertinent complaints other than HPI. Exam - Exam Exam: See Below - Vital Signs Vital Signs: Last Vital Signs Temp 36.1 C 07/07/18 19:54 Pulse 75 07/07/18 19:54 Resp 18 07/07/18 19:54 BP 230/115 H 07/07/18 20:38 Pulse Ox 96 07/07/18 19:54 Weight: 81.8 kg - Exam General: Alert, Oriented HEENT: Mucosa Moist & [place] Neck: Supple, Trachea Midline Lungs: Clear to Auscultation, Normal Respiratory Effort Cardiovascular: Regular Rate, Regular Rhythm GI/Abdominal Exam: Normal Bowel Sounds, Soft, No Distention, Tender (to deep palpation of all four quadrants). No: Guarding, Rigid, Rebound Extremities: Non-Tender, No Pedal Edema Skin: Warm, Dry, Intact - Patient Data Lab Results Last 24 hrs: Laboratory Results - last 24 hr 07/07/18 07/07/18 07/07/18 Range/Units 19:10 19:10 19:10 WBC 9.40 (4.0-11.0) K/uL RBC 4.49 L (4.50-5.90) M/uL Hgb 13.3 (13.0-17.0) g/dL Hct 36.9 L (38.0-50.0) % MCV 82.2 (80.0-98.0) fL MCH 29.6 (27.0-32.0) pg MCHC 36.0 (31.0-37.0) g/dL RDW Std Deviation 38.0 (28.0-62.0) fl RDW Coeff of Daria 13 (11.0-15.0) % Plt Count 210 (150-400) K/uL MPV 11.30 (7.40-12.00) fL Neut % (Auto) 72.7 (48.0-80.0) % Lymph % (Auto) 22.0 (16.0-40.0) % [place] % (Auto) 4.5 (0.0-15.0) % Eos % (Auto) 0.6 (0.0-7.0) % Baso % (Auto) 0.2 (0.0-1.5) % Neut # (Auto) 6.8 H (1.4-5.7) K/uL Lymph # (Auto) 2.1 (0.6-2.4) K/uL [place] # (Auto) 0.4 (0.0-0.8) K/uL Eos # (Auto) 0.1 (0.0-0.7) K/uL Baso # (Auto) 0.0 (0.0-0.1) K/uL Nucleated RBC % 0.0 /100WBC Nucleated RBCs # 0 K/uL VBG pH 7.35 (7.31-7.41) VBG pCO2 49 H (35-45) mmHG VBG pO2 40 (30-40) mmHG VBG HCO3 27 (22-30) mEq/L VBG Total CO2 25 L (41-51) mmol/L VBG Base Excess 0.5 (-3.0-3.0) Lactate (0.20-2.00) mmol/L Sodium 136 (136-148) mmol/L Potassium 4.1 (3.5-5.1) mmol/L Chloride 98 (98-107) mmol/L Carbon Dioxide 26.0 (21.0-32.0) mmol/L BUN 25 H (7.0-18.0) mg/dL Creatinine 2.6 H (0.8-1.3) mg/dL Est Cr Clr Drug Dosing 40.12 mL/min Estimated GFR (MDRD) 26.7 ml/min Glucose 346 H (74-106) mg/dL Calcium 9.1 (8.5-10.1) mg/dL Total Bilirubin 0.8 (0.2-1.0) mg/dL AST 24 (15-37) IU/L ALT 39 (14-63) IU/L Alkaline Phosphatase 178 H (46-116) U/L Troponin I (0.000-0.056) ng/mL Total Protein 7.9 (6.4-8.2) g/dL Albumin 3.8 (3.4-5.0) g/dL Globulin 4.1 H (2.6-4.0) g/dL Albumin/Globulin Ratio 0.9 (0.9-1.6) Amylase 39 (25-115) U/L Lipase 35 L (73-393) U/L Urine Color Urine Appearance Urine pH (5.0-8.0) Ur Specific [place] (1.001-1.035) Urine Protein (NEGATIVE) mg/dL Urine Glucose (UA) (NEGATIVE) mg/dL Urine Ketones (NEGATIVE) mg/dL Urine Occult Blood (NEGATIVE) Urine Nitrite (NEGATIVE) Urine Bilirubin (NEGATIVE) Urine Urobilinogen (<2.0) EU/dL Ur Leukocyte Esterase (NEGATIVE) Urine RBC (0-2/HPF) Urine WBC (0-5/HPF) Ur Epithelial Cells (NONE-FEW) Urine Bacteria (NEGATIVE) Urine Opiates Screen (NEGATIVE) Ur Oxycodone Screen (NEGATIVE) Urine Methadone Screen (NEGATIVE) Ur Barbiturates Screen (NEGATIVE) Ur Phencyclidine Scrn (NEGATIVE) Ur Amphetamine Screen (NEGATIVE) U Methamphetamines Scrn (NEGATIVE) U Benzodiazepines Scrn (NEGATIVE) U Cocaine Metab Screen (NEGATIVE) U Marijuana (THC) Screen (NEGATIVE) Ketones (NEG) H. pylori IgG Antibody (NEG) 07/07/18 07/07/18 07/07/18 Range/Units 19:10 19:10 19:20 WBC (4.0-11.0) K/uL RBC (4.50-5.90) M/uL Hgb (13.0-17.0) g/dL Hct (38.0-50.0) % MCV (80.0-98.0) fL MCH (27.0-32.0) pg MCHC (31.0-37.0) g/dL RDW Std Deviation (28.0-62.0) fl RDW Coeff of Daria (11.0-15.0) % Plt Count (150-400) K/uL MPV (7.40-12.00) fL Neut % (Auto) (48.0-80.0) % Lymph % (Auto) (16.0-40.0) % [place] % (Auto) (0.0-15.0) % Eos % (Auto) (0.0-7.0) % Baso % (Auto) (0.0-1.5) % Neut # (Auto) (1.4-5.7) K/uL Lymph # (Auto) (0.6-2.4) K/uL [place] # (Auto) (0.0-0.8) K/uL Eos # (Auto) (0.0-0.7) K/uL Baso # (Auto) (0.0-0.1) K/uL Nucleated RBC % /100WBC Nucleated RBCs # K/uL VBG pH (7.31-7.41) VBG pCO2 (35-45) mmHG VBG pO2 (30-40) mmHG VBG HCO3 (22-30) mEq/L VBG Total CO2 (41-51) mmol/L VBG Base Excess (-3.0-3.0) Lactate (0.20-2.00) mmol/L Sodium (136-148) mmol/L Potassium (3.5-5.1) mmol/L Chloride (98-107) mmol/L Carbon Dioxide (21.0-32.0) mmol/L BUN (7.0-18.0) mg/dL Creatinine (0.8-1.3) mg/dL Est Cr Clr Drug Dosing mL/min Estimated GFR (MDRD) ml/min Glucose (74-106) mg/dL Calcium (8.5-10.1) mg/dL Total Bilirubin (0.2-1.0) mg/dL AST (15-37) IU/L ALT (14-63) IU/L Alkaline Phosphatase (46-116) U/L Troponin I (0.000-0.056) ng/mL Total Protein (6.4-8.2) g/dL Albumin (3.4-5.0) g/dL Globulin (2.6-4.0) g/dL Albumin/Globulin Ratio (0.9-1.6) Amylase (25-115) U/L Lipase (73-393) U/L Urine Color YELLOW Urine Appearance CLEAR Urine pH 6.0 (5.0-8.0) Ur Specific [place] 1.010 (1.001-1.035) Urine Protein 100 H (NEGATIVE) mg/dL Urine Glucose (UA) >=1000 (NEGATIVE) mg/dL Urine Ketones NEGATIVE (NEGATIVE) mg/dL Urine Occult Blood SMALL H (NEGATIVE) Urine Nitrite NEGATIVE (NEGATIVE) Urine Bilirubin NEGATIVE (NEGATIVE) Urine Urobilinogen 0.2 (<2.0) EU/dL Ur Leukocyte Esterase NEGATIVE (NEGATIVE) Urine RBC 6-8 (0-2/HPF) Urine WBC 10-15 (0-5/HPF) Ur Epithelial Cells MODERATE (NONE-FEW) Urine Bacteria FEW (NEGATIVE) Urine Opiates Screen (NEGATIVE) Ur Oxycodone Screen (NEGATIVE) Urine Methadone Screen (NEGATIVE) Ur Barbiturates Screen (NEGATIVE) Ur Phencyclidine Scrn (NEGATIVE) Ur Amphetamine Screen (NEGATIVE) U Methamphetamines Scrn (NEGATIVE) U Benzodiazepines Scrn (NEGATIVE) U Cocaine Metab Screen (NEGATIVE) U Marijuana (THC) Screen (NEGATIVE) Ketones NEGATIVE (NEG) H. pylori IgG Antibody NEGATIVE (NEG) 07/07/18 07/07/18 07/07/18 Range/Units 19:22 20:01 21:01 WBC (4.0-11.0) K/uL RBC (4.50-5.90) M/uL Hgb (13.0-17.0) g/dL Hct (38.0-50.0) % MCV (80.0-98.0) fL MCH (27.0-32.0) pg MCHC (31.0-37.0) g/dL RDW Std Deviation (28.0-62.0) fl RDW Coeff of [place]aria (11.0-15.0) % Plt Count (150-400) K/uL MPV (7.40-12.00) fL Neut % (Auto) (48.0-80.0) % Lymph % (Auto) (16.0-40.0) % [place] % (Auto) (0.0-15.0) % Eos % (Auto) (0.0-7.0) % Baso % (Auto) (0.0-1.5) % Neut # (Auto) (1.4-5.7) K/uL Lymph # (Auto) (0.6-2.4) K/uL [place] # (Auto) (0.0-0.8) K/uL Eos # (Auto) (0.0-0.7) K/uL Baso # (Auto) (0.0-0.1) K/uL Nucleated RBC % /100WBC Nucleated RBCs # K/uL VBG pH (7.31-7.41) VBG pCO2 (35-45) mmHG VBG pO2 (30-40) mmHG VBG HCO3 (22-30) mEq/L VBG Total CO2 (41-51) mmol/L VBG Base Excess (-3.0-3.0) Lactate 0.9 (0.20-2.00) mmol/L Sodium (136-148) mmol/L Potassium (3.5-5.1) mmol/L Chloride (98-107) mmol/L Carbon Dioxide (21.0-32.0) mmol/L BUN (7.0-18.0) mg/dL Creatinine (0.8-1.3) mg/dL Est Cr Clr Drug Dosing mL/min Estimated GFR (MDRD) ml/min Glucose (74-106) mg/dL Calcium (8.5-10.1) mg/dL Total Bilirubin (0.2-1.0) mg/dL AST (15-37) IU/L ALT (14-63) IU/L Alkaline Phosphatase (46-116) U/L Troponin I < 0.050 (0.000-0.056) ng/mL Total Protein (6.4-8.2) g/dL Albumin (3.4-5.0) g/dL Globulin (2.6-4.0) g/dL Albumin/Globulin Ratio (0.9-1.6) Amylase (25-115) U/L Lipase (73-393) U/L Urine Color Urine Appearance Urine pH (5.0-8.0) Ur Specific [place] (1.001-1.035) Urine Protein (NEGATIVE) mg/dL Urine Glucose (UA) (NEGATIVE) mg/dL Urine Ketones (NEGATIVE) mg/dL Urine Occult Blood (NEGATIVE) Urine Nitrite (NEGATIVE) Urine Bilirubin (NEGATIVE) Urine Urobilinogen (<2.0) EU/dL Ur Leukocyte Esterase (NEGATIVE) Urine RBC (0-2/HPF) Urine WBC (0-5/HPF) Ur Epithelial Cells (NONE-FEW) Urine Bacteria (NEGATIVE) Urine Opiates Screen NEGATIVE (NEGATIVE) Ur Oxycodone Screen POSITIVE (NEGATIVE) Urine Methadone Screen NEGATIVE (NEGATIVE) Ur Barbiturates Screen NEGATIVE (NEGATIVE) Ur Phencyclidine Scrn NEGATIVE (NEGATIVE) Ur Amphetamine Screen NEGATIVE (NEGATIVE) U Methamphetamines Scrn NEGATIVE (NEGATIVE) U Benzodiazepines Scrn NEGATIVE (NEGATIVE) U Cocaine Metab Screen NEGATIVE (NEGATIVE) U Marijuana (THC) Screen NEGATIVE (NEGATIVE) Ketones (NEG) H. pylori IgG Antibody (NEG) Result Diagrams: 07/09/18 06:10 07/09/18 05:50 Problem List Initiated/Reviewed/Updated: Yes Orders Last 24hrs: Active Orders 24 hr Category Date Time Status Patient Status [ADT] Stat ADT 07/07/18 21:00 Active Blood Glucose Check, Bedside [RC] ONETIME Care 07/07/18 19:10 Active Blood Glucose Check, Bedside [RC] Q8HR Care 07/07/18 21:25 Ordered EKG Documentation Completion [RC] STAT Care 07/07/18 19:10 Active CULTURE URINE [RM] Stat Lab 07/07/18 19:20 Received Calcium Carbonate [Calcium] Med 07/08/18 09:00 Ordered 1 gm PO DAILY Insulin Aspart [NovoLOG] Med 07/07/18 21:30 Ordered See Protocol SUBCUT Q6H Insulin Glarg,Human.Rec.Analog Med 07/08/18 09:00 Ordered 20 units SQ DAILY Sodium Chloride 0.9% [Normal Saline] 1,000 ml Med 07/07/18 20:45 Active IV ASDIRECTED Sodium Chloride 0.9% [Saline Flush] Med 07/07/18 19:11 Active 10 ml FLUSH ASDIRECTED PRN Sodium Chloride 0.9% [Saline Flush] Med 07/07/18 19:11 Active 2.5 ml FLUSH ASDIRECTED PRN amLODIPine Besylate Med 07/08/18 09:00 Ordered 1 tab PO DAILY cefTRIAXone [Rocephin in Dextrose,Iso-Osm 1 GM/50 ML] 1 Med 07/07/18 20:59 Active gm Premix Bag 1 bag IV ONETIME cefTRIAXone [Rocephin] 1 gm Med 07/08/18 21:30 Ordered Sodium Chloride 0.9% [Normal Saline] 50 ml IV Q24H cloNIDine [Catapres] Med 07/08/18 09:00 Ordered 1 tab PO BID Saline Lock Insert [OM.PC] Stat Oth 07/07/18 19:10 Ordered Medication Orders Clonidine HCl (Catapres) mg PO BID TIA Sodium Chloride (Normal Saline) 1,000 mls @ 150 mls/hr IV ASDIRECTED TIA Last Admin: 07/07/18 20:52 Dose: 150 mls/hr Ceftriaxone Sodium/Dextrose 1 (gm/ Premix) 50 mls @ 100 mls/hr IV ONETIME ONE Stop: 07/07/18 21:28 Ceftriaxone Sodium 1 gm/ (Sodium Chloride) 50 mls @ 100 mls/hr IV Q24H TIA Insulin Aspart (Novolog) 0 unit SUBCUT Q6H TIA; Protocol Non-Formulary Medication (Amlodipine Besylate) 1 tab PO DAILY TIA Non-Formulary Medication (Calcium Carbonate [Calcium]) 1 gm PO DAILY TIA Non-Formulary Medication (Insulin Glarg,Human.Rec.Analog) 20 units SQ DAILY TIA Sodium Chloride (Saline Flush) 10 ml FLUSH ASDIRECTED PRN PRN Reason: Keep Vein Open Sodium Chloride (Saline Flush) 2.5 ml FLUSH ASDIRECTED PRN PRN Reason: Keep Vein Open Assessment/Plan Comment:: 48 yo male admitted for gastritis and UTI. Treating with IV rocephin and will place on bowel rest with prn antiemetics.
[2018-07-07] MEDS ORDERED: cloNIDine 0.1 MG Tab PO SCH (23:00)
[2018-07-07] MEDS: oxyCODONE 5 MG Tab PO PRN (23:15)
[2018-07-07] MEDS: Ondansetron 4 MG/2 ML SDV IVPUSH PRN (23:40)
[2018-07-08] MEDS: Insulin Aspart 100 Units/ML 3 ML Pen SUBCUT SCH ×5 (00:24→21:03)
[2018-07-08] MEDS ORDERED: oxyCODONE 5 MG Tab PO ONE (03:47)
[2018-07-08] MEDS ORDERED: cloNIDine 0.1 MG Tab PO ONE (03:49)
[2018-07-08] MEDS: Ondansetron 4 MG/2 ML SDV IVPUSH PRN ×2 (05:25→09:13)
[2018-07-08] MEDS ORDERED: cloNIDine 0.1 MG Tab PO SCH ×2 (09:00→21:00)
[2018-07-08] MEDS ORDERED: AMLODIPINE BESYLATE PO SCH (09:00)
[2018-07-08] MEDS ORDERED: INSULIN GLARG HUMAN REC ANALOG 20 UNIT SQ SCH (09:00)
[2018-07-08] MEDS ORDERED: CALCIUM CARBONATE PO SCH (09:00)
[2018-07-08] MEDS: oxyCODONE 5 MG Tab PO PRN ×3 (09:09→20:59)
[2018-07-08] MEDS: Pantoprazole 40 MG in Sodium Chloride 0.9% 10 ML IVPUSH SCH (10:40)
[2018-07-08] MEDS: Sodium Chloride 0.9% 1,000 ML IV SCH ×2 (10:41→16:55)
--- NOTE | 2018-07-08 10:55 | PCM.PN ---
- General Info Date of Service: 07/08/18 Subjective Update: The patient is a 48 year old male who was admitted for abdominal pain. He reports he is still having LUQ abdominal pain with nausea. He denies diarrhea, constipation, last bm was yesterday, and denies black/bloody stools. He denies chest pain, shortness of breath, or fever/chills. He missed his blood pressure medications yesterday and came in with elevated BP. Blood pressure has improved overnight. - Review of Systems General: Reports: No Symptoms HEENT: Reports: No Symptoms Pulmonary: Reports: No Symptoms Cardiovascular: Reports: No Symptoms Gastrointestinal: Reports: Abdominal Pain, Nausea. Denies: Constipation, Diarrhea, Vomiting Genitourinary: Reports: No Symptoms Musculoskeletal: Reports: No Symptoms Skin: Reports: No Symptoms Neurological: Reports: No Symptoms Psychiatric: Reports: No Symptoms - Patient Data Vitals - Most Recent: Last Vital Signs Temp 98.2 F 07/08/18 07:39 Pulse 83 07/08/18 07:39 Resp 16 07/08/18 07:39 BP 179/81 H 07/08/18 07:39 Pulse Ox 97 07/08/18 07:39 Weight - Most Recent: 80.467 kg Lab Results Last 24 Hours: Laboratory Results - last 24 hr 07/07/18 07/07/18 07/07/18 Range/Units 19:10 19:10 19:10 WBC 9.40 (4.0-11.0) K/uL RBC 4.49 L (4.50-5.90) M/uL Hgb 13.3 (13.0-17.0) g/dL Hct 36.9 L (38.0-50.0) % MCV 82.2 (80.0-98.0) fL MCH 29.6 (27.0-32.0) pg MCHC 36.0 (31.0-37.0) g/dL RDW Std Deviation 38.0 (28.0-62.0) fl RDW Coeff of Daria 13 (11.0-15.0) % Plt Count 210 (150-400) K/uL MPV 11.30 (7.40-12.00) fL Neut % (Auto) 72.7 (48.0-80.0) % Lymph % (Auto) 22.0 (16.0-40.0) % Simpson % (Auto) 4.5 (0.0-15.0) % Eos % (Auto) 0.6 (0.0-7.0) % Baso % (Auto) 0.2 (0.0-1.5) % Neut # (Auto) 6.8 H (1.4-5.7) K/uL Lymph # (Auto) 2.1 (0.6-2.4) K/uL Simpson # (Auto) 0.4 (0.0-0.8) K/uL Eos # (Auto) 0.1 (0.0-0.7) K/uL Baso # (Auto) 0.0 (0.0-0.1) K/uL Nucleated RBC % 0.0 /100WBC Nucleated RBCs # 0 K/uL VBG pH 7.35 (7.31-7.41) VBG pCO2 49 H (35-45) mmHG VBG pO2 40 (30-40) mmHG VBG HCO3 27 (22-30) mEq/L VBG Total CO2 25 L (41-51) mmol/L VBG Base Excess 0.5 (-3.0-3.0) Lactate (0.20-2.00) mmol/L Sodium 136 (136-148) mmol/L Potassium 4.1 (3.5-5.1) mmol/L Chloride 98 (98-107) mmol/L Carbon Dioxide 26.0 (21.0-32.0) mmol/L BUN 25 H (7.0-18.0) mg/dL Creatinine 2.6 H (0.8-1.3) mg/dL Est Cr Clr Drug Dosing 40.12 mL/min Estimated GFR (MDRD) 26.7 ml/min Glucose 346 H (74-106) mg/dL POC Glucose (60-110) mg/dL Calcium 9.1 (8.5-10.1) mg/dL Total Bilirubin 0.8 (0.2-1.0) mg/dL AST 24 (15-37) IU/L ALT 39 (14-63) IU/L Alkaline Phosphatase 178 H (46-116) U/L Troponin I (0.000-0.056) ng/mL Total Protein 7.9 (6.4-8.2) g/dL Albumin 3.8 (3.4-5.0) g/dL Globulin 4.1 H (2.6-4.0) g/dL Albumin/Globulin Ratio 0.9 (0.9-1.6) Amylase 39 (25-115) U/L Lipase 35 L (73-393) U/L Urine Color Urine Appearance Urine pH (5.0-8.0) Ur Specific Hester (1.001-1.035) Urine Protein (NEGATIVE) mg/dL Urine Glucose (UA) (NEGATIVE) mg/dL Urine Ketones (NEGATIVE) mg/dL Urine Occult Blood (NEGATIVE) Urine Nitrite (NEGATIVE) Urine Bilirubin (NEGATIVE) Urine Urobilinogen (<2.0) EU/dL Ur Leukocyte Esterase (NEGATIVE) Urine RBC (0-2/HPF) Urine WBC (0-5/HPF) Ur Epithelial Cells (NONE-FEW) Urine Bacteria (NEGATIVE) Urine Opiates Screen (NEGATIVE) Ur Oxycodone Screen (NEGATIVE) Urine Methadone Screen (NEGATIVE) Ur Barbiturates Screen (NEGATIVE) Ur Phencyclidine Scrn (NEGATIVE) Ur Amphetamine Screen (NEGATIVE) U Methamphetamines Scrn (NEGATIVE) U Benzodiazepines Scrn (NEGATIVE) U Cocaine Metab Screen (NEGATIVE) U Marijuana (THC) Screen (NEGATIVE) Ketones (NEG) H. pylori IgG Antibody (NEG) 07/07/18 07/07/18 07/07/18 Range/Units 19:10 19:10 19:20 WBC (4.0-11.0) K/uL RBC (4.50-5.90) M/uL Hgb (13.0-17.0) g/dL Hct (38.0-50.0) % MCV (80.0-98.0) fL MCH (27.0-32.0) pg MCHC (31.0-37.0) g/dL RDW Std Deviation (28.0-62.0) fl RDW Coeff of Daria (11.0-15.0) % Plt Count (150-400) K/uL MPV (7.40-12.00) fL Neut % (Auto) (48.0-80.0) % Lymph % (Auto) (16.0-40.0) % Simpson % (Auto) (0.0-15.0) % Eos % (Auto) (0.0-7.0) % Baso % (Auto) (0.0-1.5) % Neut # (Auto) (1.4-5.7) K/uL Lymph # (Auto) (0.6-2.4) K/uL Simpson # (Auto) (0.0-0.8) K/uL Eos # (Auto) (0.0-0.7) K/uL Baso # (Auto) (0.0-0.1) K/uL Nucleated RBC % /100WBC Nucleated RBCs # K/uL VBG pH (7.31-7.41) VBG pCO2 (35-45) mmHG VBG pO2 (30-40) mmHG VBG HCO3 (22-30) mEq/L VBG Total CO2 (41-51) mmol/L VBG Base Excess (-3.0-3.0) Lactate (0.20-2.00) mmol/L Sodium (136-148) mmol/L Potassium (3.5-5.1) mmol/L Chloride (98-107) mmol/L Carbon Dioxide (21.0-32.0) mmol/L BUN (7.0-18.0) mg/dL Creatinine (0.8-1.3) mg/dL Est Cr Clr Drug Dosing mL/min Estimated GFR (MDRD) ml/min Glucose (74-106) mg/dL POC Glucose (60-110) mg/dL Calcium (8.5-10.1) mg/dL Total Bilirubin (0.2-1.0) mg/dL AST (15-37) IU/L ALT (14-63) IU/L Alkaline Phosphatase (46-116) U/L Troponin I (0.000-0.056) ng/mL Total Protein (6.4-8.2) g/dL Albumin (3.4-5.0) g/dL Globulin (2.6-4.0) g/dL Albumin/Globulin Ratio (0.9-1.6) Amylase (25-115) U/L Lipase (73-393) U/L Urine Color YELLOW Urine Appearance CLEAR Urine pH 6.0 (5.0-8.0) Ur Specific Hester 1.010 (1.001-1.035) Urine Protein 100 H (NEGATIVE) mg/dL Urine Glucose (UA) >=1000 (NEGATIVE) mg/dL Urine Ketones NEGATIVE (NEGATIVE) mg/dL Urine Occult Blood SMALL H (NEGATIVE) Urine Nitrite NEGATIVE (NEGATIVE) Urine Bilirubin NEGATIVE (NEGATIVE) Urine Urobilinogen 0.2 (<2.0) EU/dL Ur Leukocyte Esterase NEGATIVE (NEGATIVE) Urine RBC 6-8 (0-2/HPF) Urine WBC 10-15 (0-5/HPF) Ur Epithelial Cells MODERATE (NONE-FEW) Urine Bacteria FEW (NEGATIVE) Urine Opiates Screen (NEGATIVE) Ur Oxycodone Screen (NEGATIVE) Urine Methadone Screen (NEGATIVE) Ur Barbiturates Screen (NEGATIVE) Ur Phencyclidine Scrn (NEGATIVE) Ur Amphetamine Screen (NEGATIVE) U Methamphetamines Scrn (NEGATIVE) U Benzodiazepines Scrn (NEGATIVE) U Cocaine Metab Screen (NEGATIVE) U Marijuana (THC) Screen (NEGATIVE) Ketones NEGATIVE (NEG) H. pylori IgG Antibody NEGATIVE (NEG) 07/07/18 07/07/18 07/07/18 Range/Units 19:22 20:01 21:01 WBC (4.0-11.0) K/uL RBC (4.50-5.90) M/uL Hgb (13.0-17.0) g/dL Hct (38.0-50.0) % MCV (80.0-98.0) fL MCH (27.0-32.0) pg MCHC (31.0-37.0) g/dL RDW Std Deviation (28.0-62.0) fl RDW Coeff of Daria (11.0-15.0) % Plt Count (150-400) K/uL MPV (7.40-12.00) fL Neut % (Auto) (48.0-80.0) % Lymph % (Auto) (16.0-40.0) % Simpson % (Auto) (0.0-15.0) % Eos % (Auto) (0.0-7.0) % Baso % (Auto) (0.0-1.5) % Neut # (Auto) (1.4-5.7) K/uL Lymph # (Auto) (0.6-2.4) K/uL Simpson # (Auto) (0.0-0.8) K/uL Eos # (Auto) (0.0-0.7) K/uL Baso # (Auto) (0.0-0.1) K/uL Nucleated RBC % /100WBC Nucleated RBCs # K/uL VBG pH (7.31-7.41) VBG pCO2 (35-45) mmHG VBG pO2 (30-40) mmHG VBG HCO3 (22-30) mEq/L VBG Total CO2 (41-51) mmol/L VBG Base Excess (-3.0-3.0) Lactate 0.9 (0.20-2.00) mmol/L Sodium (136-148) mmol/L Potassium (3.5-5.1) mmol/L Chloride (98-107) mmol/L Carbon Dioxide (21.0-32.0) mmol/L BUN (7.0-18.0) mg/dL Creatinine (0.8-1.3) mg/dL Est Cr Clr Drug Dosing mL/min Estimated GFR (MDRD) ml/min Glucose (74-106) mg/dL POC Glucose (60-110) mg/dL Calcium (8.5-10.1) mg/dL Total Bilirubin (0.2-1.0) mg/dL AST (15-37) IU/L ALT (14-63) IU/L Alkaline Phosphatase (46-116) U/L Troponin I < 0.050 (0.000-0.056) ng/mL Total Protein (6.4-8.2) g/dL Albumin (3.4-5.0) g/dL Globulin (2.6-4.0) g/dL Albumin/Globulin Ratio (0.9-1.6) Amylase (25-115) U/L Lipase (73-393) U/L Urine Color Urine Appearance Urine pH (5.0-8.0) Ur Specific Hester (1.001-1.035) Urine Protein (NEGATIVE) mg/dL Urine Glucose (UA) (NEGATIVE) mg/dL Urine Ketones (NEGATIVE) mg/dL Urine Occult Blood (NEGATIVE) Urine Nitrite (NEGATIVE) Urine Bilirubin (NEGATIVE) Urine Urobilinogen (<2.0) EU/dL Ur Leukocyte Esterase (NEGATIVE) Urine RBC (0-2/HPF) Urine WBC (0-5/HPF) Ur Epithelial Cells (NONE-FEW) Urine Bacteria (NEGATIVE) Urine Opiates Screen NEGATIVE (NEGATIVE) Ur Oxycodone Screen POSITIVE (NEGATIVE) Urine Methadone Screen NEGATIVE (NEGATIVE) Ur Barbiturates Screen NEGATIVE (NEGATIVE) Ur Phencyclidine Scrn NEGATIVE (NEGATIVE) Ur Amphetamine Screen NEGATIVE (NEGATIVE) U Methamphetamines Scrn NEGATIVE (NEGATIVE) U Benzodiazepines Scrn NEGATIVE (NEGATIVE) U Cocaine Metab Screen NEGATIVE (NEGATIVE) U Marijuana (THC) Screen NEGATIVE (NEGATIVE) Ketones (NEG) H. pylori IgG Antibody (NEG) 07/07/18 07/08/18 07/08/18 Range/Units 23:06 03:24 05:24 WBC (4.0-11.0) K/uL RBC (4.50-5.90) M/uL Hgb (13.0-17.0) g/dL Hct (38.0-50.0) % MCV (80.0-98.0) fL MCH (27.0-32.0) pg MCHC (31.0-37.0) g/dL RDW Std Deviation (28.0-62.0) fl RDW Coeff of Daria (11.0-15.0) % Plt Count (150-400) K/uL MPV (7.40-12.00) fL Neut % (Auto) (48.0-80.0) % Lymph % (Auto) (16.0-40.0) % Simpson % (Auto) (0.0-15.0) % Eos % (Auto) (0.0-7.0) % Baso % (Auto) (0.0-1.5) % Neut # (Auto) (1.4-5.7) K/uL Lymph # (Auto) (0.6-2.4) K/uL Simpson # (Auto) (0.0-0.8) K/uL Eos # (Auto) (0.0-0.7) K/uL Baso # (Auto) (0.0-0.1) K/uL Nucleated RBC % /100WBC Nucleated RBCs # K/uL VBG pH (7.31-7.41) VBG pCO2 (35-45) mmHG VBG pO2 (30-40) mmHG VBG HCO3 (22-30) mEq/L VBG Total CO2 (41-51) mmol/L VBG Base Excess (-3.0-3.0) Lactate (0.20-2.00) mmol/L Sodium (136-148) mmol/L Potassium (3.5-5.1) mmol/L Chloride (98-107) mmol/L Carbon Dioxide (21.0-32.0) mmol/L BUN (7.0-18.0) mg/dL Creatinine (0.8-1.3) mg/dL Est Cr Clr Drug Dosing mL/min Estimated GFR (MDRD) ml/min Glucose (74-106) mg/dL POC Glucose 342 H 311 H 301 H (60-110) mg/dL Calcium (8.5-10.1) mg/dL Total Bilirubin (0.2-1.0) mg/dL AST (15-37) IU/L ALT (14-63) IU/L Alkaline Phosphatase (46-116) U/L Troponin I (0.000-0.056) ng/mL Total Protein (6.4-8.2) g/dL Albumin (3.4-5.0) g/dL Globulin (2.6-4.0) g/dL Albumin/Globulin Ratio (0.9-1.6) Amylase (25-115) U/L Lipase (73-393) U/L Urine Color Urine Appearance Urine pH (5.0-8.0) Ur Specific Hester (1.001-1.035) Urine Protein (NEGATIVE) mg/dL Urine Glucose (UA) (NEGATIVE) mg/dL Urine Ketones (NEGATIVE) mg/dL Urine Occult Blood (NEGATIVE) Urine Nitrite (NEGATIVE) Urine Bilirubin (NEGATIVE) Urine Urobilinogen (<2.0) EU/dL Ur Leukocyte Esterase (NEGATIVE) Urine RBC (0-2/HPF) Urine WBC (0-5/HPF) Ur Epithelial Cells (NONE-FEW) Urine Bacteria (NEGATIVE) Urine Opiates Screen (NEGATIVE) Ur Oxycodone Screen (NEGATIVE) Urine Methadone Screen (NEGATIVE) Ur Barbiturates Screen (NEGATIVE) Ur Phencyclidine Scrn (NEGATIVE) Ur Amphetamine Screen (NEGATIVE) U Methamphetamines Scrn (NEGATIVE) U Benzodiazepines Scrn (NEGATIVE) U Cocaine Metab Screen (NEGATIVE) U Marijuana (THC) Screen (NEGATIVE) Ketones (NEG) H. pylori IgG Antibody (NEG) 07/08/18 07/08/18 07/08/18 Range/Units 07:52 07:52 07:52 WBC 9.47 (4.0-11.0) K/uL RBC 3.97 L (4.50-5.90) M/uL Hgb 11.7 L (13.0-17.0) g/dL Hct 33.0 L (38.0-50.0) % MCV 83.1 (80.0-98.0) fL MCH 29.5 (27.0-32.0) pg MCHC 35.5 (31.0-37.0) g/dL RDW Std Deviation 38.4 (28.0-62.0) fl RDW Coeff of Daria 13 (11.0-15.0) % Plt Count 179 (150-400) K/uL MPV 10.90 (7.40-12.00) fL Neut % (Auto) 81.4 H (48.0-80.0) % Lymph % (Auto) 13.4 L (16.0-40.0) % Simpson % (Auto) 4.8 (0.0-15.0) % Eos % (Auto) 0.2 (0.0-7.0) % Baso % (Auto) 0.2 (0.0-1.5) % Neut # (Auto) 7.7 H (1.4-5.7) K/uL Lymph # (Auto) 1.3 (0.6-2.4) K/uL Simpson # (Auto) 0.5 (0.0-0.8) K/uL Eos # (Auto) 0.0 (0.0-0.7) K/uL Baso # (Auto) 0.0 (0.0-0.1) K/uL Nucleated RBC % 0.0 /100WBC Nucleated RBCs # 0 K/uL VBG pH (7.31-7.41) VBG pCO2 (35-45) mmHG VBG pO2 (30-40) mmHG VBG HCO3 (22-30) mEq/L VBG Total CO2 (41-51) mmol/L VBG Base Excess (-3.0-3.0) Lactate (0.20-2.00) mmol/L Sodium 140 (136-148) mmol/L Potassium 4.5 (3.5-5.1) mmol/L Chloride 105 (98-107) mmol/L Carbon Dioxide 24.9 (21.0-32.0) mmol/L BUN 19 H (7.0-18.0) mg/dL Creatinine 2.2 H (0.8-1.3) mg/dL Est Cr Clr Drug Dosing 47.42 mL/min Estimated GFR (MDRD) 32.4 ml/min Glucose 292 H (74-106) mg/dL POC Glucose (60-110) mg/dL Calcium 8.1 L (8.5-10.1) mg/dL Total Bilirubin (0.2-1.0) mg/dL AST (15-37) IU/L ALT (14-63) IU/L Alkaline Phosphatase 134 H (46-116) U/L Troponin I (0.000-0.056) ng/mL Total Protein (6.4-8.2) g/dL Albumin (3.4-5.0) g/dL Globulin (2.6-4.0) g/dL Albumin/Globulin Ratio (0.9-1.6) Amylase (25-115) U/L Lipase 26 L (73-393) U/L Urine Color Urine Appearance Urine pH (5.0-8.0) Ur Specific Hester (1.001-1.035) Urine Protein (NEGATIVE) mg/dL Urine Glucose (UA) (NEGATIVE) mg/dL Urine Ketones (NEGATIVE) mg/dL Urine Occult Blood (NEGATIVE) Urine Nitrite (NEGATIVE) Urine Bilirubin (NEGATIVE) Urine Urobilinogen (<2.0) EU/dL Ur Leukocyte Esterase (NEGATIVE) Urine RBC (0-2/HPF) Urine WBC (0-5/HPF) Ur Epithelial Cells (NONE-FEW) Urine Bacteria (NEGATIVE) Urine Opiates Screen (NEGATIVE) Ur Oxycodone Screen (NEGATIVE) Urine Methadone Screen (NEGATIVE) Ur Barbiturates Screen (NEGATIVE) Ur Phencyclidine Scrn (NEGATIVE) Ur Amphetamine Screen (NEGATIVE) U Methamphetamines Scrn (NEGATIVE) U Benzodiazepines Scrn (NEGATIVE) U Cocaine Metab Screen (NEGATIVE) U Marijuana (THC) Screen (NEGATIVE) Ketones (NEG) H. pylori IgG Antibody (NEG) 07/08/18 Range/Units 09:15 WBC (4.0-11.0) K/uL RBC (4.50-5.90) M/uL Hgb (13.0-17.0) g/dL Hct (38.0-50.0) % MCV (80.0-98.0) fL MCH (27.0-32.0) pg MCHC (31.0-37.0) g/dL RDW Std Deviation (28.0-62.0) fl RDW Coeff of Daria (11.0-15.0) % Plt Count (150-400) K/uL MPV (7.40-12.00) fL Neut % (Auto) (48.0-80.0) % Lymph % (Auto) (16.0-40.0) % Simpson % (Auto) (0.0-15.0) % Eos % (Auto) (0.0-7.0) % Baso % (Auto) (0.0-1.5) % Neut # (Auto) (1.4-5.7) K/uL Lymph # (Auto) (0.6-2.4) K/uL Simpson # (Auto) (0.0-0.8) K/uL Eos # (Auto) (0.0-0.7) K/uL Baso # (Auto) (0.0-0.1) K/uL Nucleated RBC % /100WBC Nucleated RBCs # K/uL VBG pH (7.31-7.41) VBG pCO2 (35-45) mmHG VBG pO2 (30-40) mmHG VBG HCO3 (22-30) mEq/L VBG Total CO2 (41-51) mmol/L VBG Base Excess (-3.0-3.0) Lactate (0.20-2.00) mmol/L Sodium (136-148) mmol/L Potassium (3.5-5.1) mmol/L Chloride (98-107) mmol/L Carbon Dioxide (21.0-32.0) mmol/L BUN (7.0-18.0) mg/dL Creatinine (0.8-1.3) mg/dL Est Cr Clr Drug Dosing mL/min Estimated GFR (MDRD) ml/min Glucose (74-106) mg/dL POC Glucose 293 H (60-110) mg/dL Calcium (8.5-10.1) mg/dL Total Bilirubin (0.2-1.0) mg/dL AST (15-37) IU/L ALT (14-63) IU/L Alkaline Phosphatase (46-116) U/L Troponin I (0.000-0.056) ng/mL Total Protein (6.4-8.2) g/dL Albumin (3.4-5.0) g/dL Globulin (2.6-4.0) g/dL Albumin/Globulin Ratio (0.9-1.6) Amylase (25-115) U/L Lipase (73-393) U/L Urine Color Urine Appearance Urine pH (5.0-8.0) Ur Specific Hester (1.001-1.035) Urine Protein (NEGATIVE) mg/dL Urine Glucose (UA) (NEGATIVE) mg/dL Urine Ketones (NEGATIVE) mg/dL Urine Occult Blood (NEGATIVE) Urine Nitrite (NEGATIVE) Urine Bilirubin (NEGATIVE) Urine Urobilinogen (<2.0) EU/dL Ur Leukocyte Esterase (NEGATIVE) Urine RBC (0-2/HPF) Urine WBC (0-5/HPF) Ur Epithelial Cells (NONE-FEW) Urine Bacteria (NEGATIVE) Urine Opiates Screen (NEGATIVE) Ur Oxycodone Screen (NEGATIVE) Urine Methadone Screen (NEGATIVE) Ur Barbiturates Screen (NEGATIVE) Ur Phencyclidine Scrn (NEGATIVE) Ur Amphetamine Screen (NEGATIVE) U Methamphetamines Scrn (NEGATIVE) U Benzodiazepines Scrn (NEGATIVE) U Cocaine Metab Screen (NEGATIVE) U Marijuana (THC) Screen (NEGATIVE) Ketones (NEG) H. pylori IgG Antibody (NEG) Med Orders - Current: Current Medications Clonidine HCl (Catapres) 0.2 mg PO BEDTIME TIA Last Admin: 07/07/18 23:38 Dose: 0.2 mg Sodium Chloride (Normal Saline) 1,000 mls @ 150 mls/hr IV ASDIRECTED TIA Last Admin: 07/08/18 10:41 Dose: 150 mls/hr Ceftriaxone Sodium 1 gm/ (Sodium Chloride) 50 mls @ 100 mls/hr IV Q24H TIA Pantoprazole Sodium 40 mg/ (Sodium Chloride) 10 mls @ 300 mls/hr IVPUSH Q24H TIA Last Admin: 07/08/18 10:40 Dose: 300 mls/hr Insulin Aspart (Novolog) 0 unit SUBCUT Q6H TIA; Protocol Last Admin: 07/08/18 09:16 Dose: Not Given Losartan Potassium (Cozaar) 25 mg PO DAILY [facility] Non-Formulary Medication (Calcium Carbonate [Calcium]) 1 gm PO DAILY [facility] Non-Formulary Medication (Insulin Glarg,Human.Rec.Analog) 20 units SQ DAILY [facility] Non-Formulary Medication (Amlodipine Besylate) 10 tab PO DAILY [facility] Ondansetron HCl (Zofran) 4 mg IVPUSH Q4H PRN PRN Reason: Nausea Last Admin: 07/08/18 09:13 Dose: 4 mg Oxycodone HCl (Oxycodone) 10 mg PO Q6H PRN PRN Reason: Pain (moderate 4-6) Last Admin: 07/08/18 09:09 Dose: 10 mg Sodium Chloride (Saline Flush) 10 ml FLUSH ASDIRECTED PRN PRN Reason: Keep Vein Open Sodium Chloride (Saline Flush) 2.5 ml FLUSH ASDIRECTED PRN PRN Reason: Keep Vein Open Discontinued Medications Clonidine HCl (Catapres) 0.1 mg PO ONETIME ONE Stop: 07/07/18 20:18 Last Admin: 07/07/18 20:38 Dose: 0.1 mg Clonidine HCl (Catapres) 0.1 mg PO BID TIA Clonidine HCl (Catapres) 0.1 mg PO ONETIME ONE Stop: 07/07/18 22:40 Last Admin: 07/07/18 22:54 Dose: Not Given Clonidine HCl (Catapres) 0.1 mg PO ONETIME ONE Stop: 07/08/18 03:50 Last Admin: 07/08/18 04:03 Dose: 0.1 mg Hydromorphone HCl (Dilaudid) 1 mg IVPUSH ONETIME ONE Stop: 07/07/18 19:12 Last Admin: 07/07/18 19:24 Dose: 1 mg Hydromorphone HCl (Dilaudid) 1 mg IVPUSH ONETIME ONE Stop: 07/07/18 20:43 Last Admin: 07/07/18 20:53 Dose: 1 mg Sodium Chloride (Normal Saline) 1,000 mls @ 999 mls/hr IV STAT ONE Stop: 07/07/18 20:11 Last Admin: 07/07/18 19:24 Dose: 999 mls/hr Ceftriaxone Sodium/Dextrose 1 (gm/ Premix) 50 mls @ 100 mls/hr IV ONETIME ONE Stop: 07/07/18 21:28 Last Admin: 07/07/18 21:29 Dose: 100 mls/hr Non-Formulary Medication (Amlodipine Besylate) 1 tab PO DAILY [facility]IA Ondansetron HCl (Zofran) 4 mg IVPUSH ONETIME ONE Stop: 07/07/18 19:12 Last Admin: 07/07/18 19:24 Dose: 4 mg Oxycodone HCl (Oxycodone) 10 mg PO ONETIME ONE Stop: 07/08/18 03:48 Last Admin: 07/08/18 04:01 Dose: 10 mg Pantoprazole Sodium (Protonix Iv) 80 mg IVPUSH .BOLUS ONE Stop: 07/07/18 19:12 Last Admin: 07/07/18 19:24 Dose: 80 mg - Exam General: Alert, Oriented, Cooperative Neck: Supple Lungs: Clear to Auscultation, Normal Respiratory Effort Cardiovascular: Regular Rate, Regular Rhythm GI/Abdominal Exam: Normal Bowel Sounds, Soft, No Distention. No: Non-Tender ( tender LUQ) Extremities: No Pedal Edema Skin: Warm, Dry Wound/Incisions: Healing Well Neurological: No New Focal Deficit Psy/Mental Status: Alert, Normal Affect, Normal Mood - Problem List Review Problem List Initiated/Reviewed/Updated: Yes - My Orders Last 24 Hours: My Active Orders 07/08/18 10:45 ALANINE AMINOTRANSFERASE,ALT [CHEM] Routine ASPARTATE AMNIOTRANSFERASE,AST [CHEM] Routine BILIRUBIN TOTAL [CHEM] Routine 07/08/18 11:00 Losartan [Cozaar] 25 mg PO DAILY amLODIPine Besylate 10 tab PO DAILY - Plan Plan:: 1. Abdominal pain with nausea/vomiting- continue IVF and zofran. 2. HTN- continue home meds of amlodpin 10 mg and losartan 25 mg 3. DMI- continue Levemir 20 with sliding scale and accuchecks 4. Chronic pain/ neuropathy- conitnue home oxycodone 5. UTI- urine culture pending, continue rocephin. 6. Acute on chronic kidney failure- Cr improved fro m2.6 to 2.2, continue IVF.
[2018-07-08] MEDS ORDERED: Losartan 50 MG Tab PO SCH (11:00)
[2018-07-08] MEDS: amLODIPine 5 MG Tab PO SCH (11:31)
[2018-07-08] MEDS: Insulin Glargine,Human Rec. Analog 100 Units/ML 3 ML Pen SUBCUT SCH (11:33)
[2018-07-08] MEDS: Losartan 50 MG Tab PO SCH (14:08)
[2018-07-08] MEDS ORDERED: HYDROmorphone 2 MG/ML Syringe IVPUSH ONE (15:35)
[2018-07-08] MEDS: cloNIDine 0.1 MG Tab PO SCH (20:26)
[2018-07-08] MEDS ORDERED: Insulin Aspart 100 Units/ML 3 ML Pen SUBCUT SCH (21:00)
[2018-07-08] MEDS ORDERED: cefTRIAXone 1 GM in Sodium Chloride 0.9% 50 ML IV SCH (21:30)
[2018-07-08] MEDS ORDERED: ALPRAZolam 0.5 MG Tab PO PRN (21:57)
[2018-07-08] MEDS ORDERED: Aspirin 81 MG Tab.Chew PO SCH (22:00)
[2018-07-09] MEDS: oxyCODONE 5 MG Tab PO PRN ×2 (03:47→09:11)
[2018-07-09] MEDS: Ondansetron 4 MG/2 ML SDV IVPUSH PRN (03:52)
[2018-07-09] MEDS: Sodium Chloride 0.9% 1,000 ML IV SCH (05:53)
[2018-07-09] MEDS ORDERED: Insulin Aspart 100 Units/ML 3 ML Pen SUBCUT SCH (07:30)
[2018-07-09] MEDS ORDERED: Calcium Carbonate 500 MG Tablet PO SCH (08:00)
[2018-07-09] MEDS: cloNIDine 0.1 MG Tab PO SCH (09:15)
[2018-07-09] MEDS: Losartan 50 MG Tab PO SCH (09:16)
[2018-07-09] MEDS: Insulin Glargine,Human Rec. Analog 100 Units/ML 3 ML Pen SUBCUT SCH (09:34)
[2018-07-09] MEDS: Pantoprazole 40 MG in Sodium Chloride 0.9% 10 ML IVPUSH SCH (09:36)
[2018-07-09] MEDS: Insulin Aspart 100 Units/ML 3 ML Pen SUBCUT SCH ×2 (10:27→12:33)
--- NOTE | 2018-07-09 11:09 | PCM.DCSUM1 ---
<Deyanira Betancur - Last Filed: 07/09/18 12:24> Discharge Summary - Hospital Course HPI Initial Comments: Admission Date:07/07/18 Discharge Date: 07/09/18 Admission Diagnosis: 1. abdominal pain with nausea/vomiting 2. ISMAEL 3. HTN 4. DMI 5. Chronic pain/neuropathy 6. UTI Discharge Diagnosis: 1. abdominal pain with nausea/vomiting-improved 2. ISMAEL- improved 3. HTN 4. DMI 5. Chronic pain/neuropathy 6. UTI Procedures: None Consults: None Hospital Course: The patient is a 48 year old male with past medical history of DMI, HTN, chronic pain who presented to the ER with abdominal pain with associated nausea/vomiting. Workup showed no white count, ISMAEL, elevated alk xi but no elevation in LFTs, amylase, or lipase. A Hpylori was negative. CT ab/pelvis showed possible bladder wall thickening and there was possible UTI based on UA. THe patient was admitted to the medical surgical floor for observation. He was hydrated with IVF and his ISMAEL and abdominal pain improved. He was given zofran as needed for nausea/vomiting. This improved and he was tolerating an oral diet by day of discharge. He was continued on his home medication for HTN and DMI. He was continued on oxycodone for chronic pain. He was started on Rocephin for UTI, urine culture was pending at time of discharge. By day of discharge, patient was requesting discharge so he can travel home to [place]. Disposition: Home Discharge Condition: vitals stable, tolerating oral diet, ambulating without difficulty, symptom improved. Discharge Instructions: diabetic diet as tolerated, activity as tolerated, take medications as prescribed. Symptoms to report to physician include fever/chills , chest pain, shortness of breath, abdominal pain, nausea/vomiting, erythema, discharge/drainage, or not improving as expected. Discharge Medications: Aspirin 81 mg PO DAILY Calcium Carbonate [Calcium] 1,000 mg PO DAILY Losartan Potassium 25 mg PO DAILY Magnesium Oxide [Magnesium] 400 mg PO DAILY amLODIPine Besylate [Amlodipine Besylate] 10 mg PO DAILY Insulin Glarg,Human.Rec.Analog [Lantus] 30 units SQ DAILY cloNIDine [Catapres] 0.1 mg PO DAILY@1600 cloNIDine [Catapres] 0.2 mg PO BID ALPRAZolam [Alprazolam] 0.5 mg PO BID PRN Ergocalciferol (Vitamin D2) [Vitamin D2] 50,000 unit PO WEEKLY Insulin Lispro [HumaLOG] 6 units SUBCUT TIDAC Testosterone Cypionate [Depo-Testosterone] 200 mg IM Q14D oxyCODONE HCl [Oxycodone HCl] 20 mg PO .SIX TIMES DAILY Cephalexin [Keflex] 500 mg PO BID 2 Days #4 capsule Ondansetron [Zofran ODT] 4 mg PO Q6H PRN 5 Days #20 tab.dis Follow-up: PCP within one week of discharge. Diagnosis: Stroke: No - Discharge Data Discharge Date: 07/09/18 Discharge Disposition: Home, Self-Care 01 Condition: Fair - Patient Instructions Diet: Diabetic Diet Activity: As Tolerated Showering/Bathing: May Shower Notify Provider of: Fever, Increased Pain, Swelling and Redness, Drainage, Nausea and/or Vomiting Other/Special Instructions: Additional symptoms include chest pain, shortness of breath, or abdominal pain. - Discharge Plan *PRESCRIPTION DRUG MONITORING PROGRAM REVIEWED*: No *COPY OF PRESCRIPTION DRUG MONITORING REPORT IN PATIENT SUYAPA: No Prescriptions/Med Rec: Cephalexin [Keflex] 500 mg PO BID 2 Days #4 capsule Ondansetron [Zofran ODT] 4 mg PO Q6H PRN 5 Days #20 tab.dis PRN Reason: Nausea/Vomiting Home Medications: Home Meds Aspirin 81 mg PO DAILY 06/25/18 [History] Calcium Carbonate [Calcium] 1,000 mg PO DAILY 06/25/18 [History] Losartan Potassium 25 mg PO DAILY 06/25/18 [History] Magnesium Oxide [Magnesium] 400 mg PO DAILY 06/25/18 [History] amLODIPine Besylate [Amlodipine Besylate] 10 mg PO DAILY 06/25/18 [History] Insulin Glarg,Human.Rec.Analog [Lantus] 30 units SQ DAILY 06/30/18 [History] cloNIDine [Catapres] 0.1 mg PO DAILY@1600 07/07/18 [History] cloNIDine [Catapres] 0.2 mg PO BID 07/07/18 [History] ALPRAZolam [Alprazolam] 0.5 mg PO BID PRN 07/08/18 [History] Ergocalciferol (Vitamin D2) [Vitamin D2] 50,000 unit PO WEEKLY 07/08/18 [History ] Insulin Lispro [HumaLOG] 6 units SUBCUT TIDAC 07/08/18 [History] Testosterone Cypionate [Depo-Testosterone] 200 mg IM Q14D 07/08/18 [History] oxyCODONE HCl [Oxycodone HCl] 20 mg PO .SIX TIMES DAILY 07/08/18 [History] Cephalexin [Keflex] 500 mg PO BID 2 Days #4 capsule 07/09/18 [Rx] Ondansetron [Zofran ODT] 4 mg PO Q6H PRN 5 Days #20 tab.dis 07/09/18 [Rx] Patient Handouts: Ondansetron tablets, Hyperglycemia, Abdominal Pain, Adult, [id number], Cephalexin tablets or capsules Forms: ED Department Discharge Referrals: PCP,Unknown [Primary Care Provider] - - Discharge Summary/Plan Comment DC Time >30 min.: No - Patient Data Vitals - Most Recent: Last Vital Signs Temp 97 F 07/09/18 04:00 Pulse 72 07/09/18 04:00 Resp 18 07/09/18 04:00 BP 207/102 H 07/09/18 09:18 Pulse Ox 98 07/09/18 04:00 Weight - Most Recent: 80.467 kg I&O - Last 24 hours: Intake & Output 07/08/18 07/09/18 07/09/18 22:59 06:59 14:59 Intake Total 3090 Balance 3090 Lab Results - Last 24 hrs: Laboratory Results - last 24 hr 07/08/18 07/08/18 07/08/18 Range/Units 07:52 12:02 15:43 WBC (4.0-11.0) K/uL RBC (4.50-5.90) M/uL Hgb (13.0-17.0) g/dL Hct (38.0-50.0) % MCV (80.0-98.0) fL MCH (27.0-32.0) pg MCHC (31.0-37.0) g/dL RDW Std Deviation (28.0-62.0) fl RDW Coeff of Daria (11.0-15.0) % Plt Count (150-400) K/uL MPV (7.40-12.00) fL Neut % (Auto) (48.0-80.0) % Lymph % (Auto) (16.0-40.0) % [place] % (Auto) (0.0-15.0) % Eos % (Auto) (0.0-7.0) % Baso % (Auto) (0.0-1.5) % Neut # (Auto) (1.4-5.7) K/uL Lymph # (Auto) (0.6-2.4) K/uL [place] # (Auto) (0.0-0.8) K/uL Eos # (Auto) (0.0-0.7) K/uL Baso # (Auto) (0.0-0.1) K/uL Nucleated RBC % /100WBC Nucleated RBCs # K/uL Sodium (136-148) mmol/L Potassium (3.5-5.1) mmol/L Chloride (98-107) mmol/L Carbon Dioxide (21.0-32.0) mmol/L BUN (7.0-18.0) mg/dL Creatinine (0.8-1.3) mg/dL Est Cr Clr Drug Dosing mL/min Estimated GFR (MDRD) ml/min Glucose (74-106) mg/dL POC Glucose 303 H 261 H (60-110) mg/dL Calcium (8.5-10.1) mg/dL Total Bilirubin 1.1 H (0.2-1.0) mg/dL AST 17 (15-37) IU/L ALT 33 (14-63) IU/L Alkaline Phosphatase (46-116) U/L Total Protein (6.4-8.2) g/dL Albumin (3.4-5.0) g/dL Globulin (2.6-4.0) g/dL Albumin/Globulin Ratio (0.9-1.6) 07/08/18 07/09/18 07/09/18 Range/Units 20:45 05:50 06:10 WBC 11.04 H (4.0-11.0) K/uL RBC 3.51 L (4.50-5.90) M/uL Hgb 10.3 L (13.0-17.0) g/dL Hct 29.7 L (38.0-50.0) % MCV 84.6 (80.0-98.0) fL MCH 29.3 (27.0-32.0) pg MCHC 34.7 (31.0-37.0) g/dL RDW Std Deviation 39.4 (28.0-62.0) fl RDW Coeff of Daria 13 (11.0-15.0) % Plt Count 150 (150-400) K/uL MPV 11.10 (7.40-12.00) fL Neut % (Auto) 73.9 (48.0-80.0) % Lymph % (Auto) 17.8 (16.0-40.0) % [place] % (Auto) 7.1 (0.0-15.0) % Eos % (Auto) 1.0 (0.0-7.0) % Baso % (Auto) 0.2 (0.0-1.5) % Neut # (Auto) 8.2 H (1.4-5.7) K/uL Lymph # (Auto) 2.0 (0.6-2.4) K/uL [place] # (Auto) 0.8 (0.0-0.8) K/uL Eos # (Auto) 0.1 (0.0-0.7) K/uL Baso # (Auto) 0.0 (0.0-0.1) K/uL Nucleated RBC % 0.0 /100WBC Nucleated RBCs # 0 K/uL Sodium 140 (136-148) mmol/L Potassium 4.2 (3.5-5.1) mmol/L Chloride 106 (98-107) mmol/L Carbon Dioxide 23.1 (21.0-32.0) mmol/L BUN 18 (7.0-18.0) mg/dL Creatinine 2.1 H (0.8-1.3) mg/dL Est Cr Clr Drug Dosing 49.67 mL/min Estimated GFR (MDRD) 34.2 ml/min Glucose 157 H (74-106) mg/dL POC Glucose 321 H (60-110) mg/dL Calcium 7.5 L (8.5-10.1) mg/dL Total Bilirubin 0.6 (0.2-1.0) mg/dL AST 16 (15-37) IU/L ALT 26 (14-63) IU/L Alkaline Phosphatase 112 (46-116) U/L Total Protein 5.3 L (6.4-8.2) g/dL Albumin 2.5 L (3.4-5.0) g/dL Globulin 2.8 (2.6-4.0) g/dL Albumin/Globulin Ratio 0.9 (0.9-1.6) 07/09/18 Range/Units 06:36 WBC (4.0-11.0) K/uL RBC (4.50-5.90) M/uL Hgb (13.0-17.0) g/dL Hct (38.0-50.0) % MCV (80.0-98.0) fL MCH (27.0-32.0) pg MCHC (31.0-37.0) g/dL RDW Std Deviation (28.0-62.0) fl RDW Coeff of Daria (11.0-15.0) % Plt Count (150-400) K/uL MPV (7.40-12.00) fL Neut % (Auto) (48.0-80.0) % Lymph % (Auto) (16.0-40.0) % [place] % (Auto) (0.0-15.0) % Eos % (Auto) (0.0-7.0) % Baso % (Auto) (0.0-1.5) % Neut # (Auto) (1.4-5.7) K/uL Lymph # (Auto) (0.6-2.4) K/uL [place] # (Auto) (0.0-0.8) K/uL Eos # (Auto) (0.0-0.7) K/uL Baso # (Auto) (0.0-0.1) K/uL Nucleated RBC % /100WBC Nucleated RBCs # K/uL Sodium (136-148) mmol/L Potassium (3.5-5.1) mmol/L Chloride (98-107) mmol/L Carbon Dioxide (21.0-32.0) mmol/L BUN (7.0-18.0) mg/dL Creatinine (0.8-1.3) mg/dL Est Cr Clr Drug Dosing mL/min Estimated GFR (MDRD) ml/min Glucose (74-106) mg/dL POC Glucose 151 H (60-110) mg/dL Calcium (8.5-10.1) mg/dL Total Bilirubin (0.2-1.0) mg/dL AST (15-37) IU/L ALT (14-63) IU/L Alkaline Phosphatase (46-116) U/L Total Protein (6.4-8.2) g/dL Albumin (3.4-5.0) g/dL Globulin (2.6-4.0) g/dL Albumin/Globulin Ratio (0.9-1.6) CELSO Results - Last 24 hrs: Microbiology 07/07/18 19:20 Urine Culture - Final Urine, Clean Catch MIXED LACHELLE <1000 CFU/ML Med Orders - Current: Current Medications Alprazolam (Xanax) 0.5 mg PO BID PRN PRN Reason: Anxiety Last Admin: 07/08/18 22:41 Dose: 0.5 mg Amlodipine Besylate (Norvasc) 10 mg PO DAILY [facility] Last Admin: 07/09/18 09:18 Dose: Not Given Calcium Carbonate/Glycine (Oyster Shell Calcium) 1,000 mg PO DAILY@0800 [facility] Last Admin: 07/09/18 09:17 Dose: 1,000 mg Clonidine HCl (Catapres) 0.2 mg PO BID [facility] Last Admin: 07/09/18 09:15 Dose: 0.2 mg Clonidine HCl (Catapres) 0.1 mg PO DAILY@1600 [facility] Sodium Chloride (Normal Saline) 1,000 mls @ 150 mls/hr IV ASDIRECTED [facility] Last Admin: 07/09/18 05:53 Dose: 150 mls/hr Ceftriaxone Sodium 1 gm/ (Sodium Chloride) 50 mls @ 100 mls/hr IV Q24H [facility] Last Admin: 07/08/18 21:01 Dose: 100 mls/hr Pantoprazole Sodium 40 mg/ (Sodium Chloride) 10 mls @ 300 mls/hr IVPUSH Q24H [facility] Last Admin: 07/09/18 09:36 Dose: 300 mls/hr Insulin Aspart (Novolog) 0 unit SUBCUT QIDACANDBED [facility]; Protocol Last Admin: 07/09/18 10:27 Dose: Not Given Insulin Glargine (Lantus Solostar) 20 units SUBCUT DAILY [facility] Last Admin: 07/09/18 09:34 Dose: 20 units Losartan Potassium (Cozaar) 25 mg PO DAILY [facility] Last Admin: 07/09/18 09:16 Dose: 25 mg Ondansetron HCl (Zofran) 4 mg IVPUSH Q4H PRN PRN Reason: Nausea Last Admin: 07/09/18 03:52 Dose: 4 mg Oxycodone HCl (Oxycodone) 10 mg PO Q6H PRN PRN Reason: Pain (moderate 4-6) Last Admin: 07/09/18 09:11 Dose: 10 mg Sodium Chloride (Saline Flush) 10 ml FLUSH ASDIRECTED PRN PRN Reason: Keep Vein Open Sodium Chloride (Saline Flush) 2.5 ml FLUSH ASDIRECTED PRN PRN Reason: Keep Vein Open Discontinued Medications Aspirin (Aspirin) 81 mg PO DAILY [facility] Last Admin: 07/08/18 22:42 Dose: Not Given Clonidine HCl (Catapres) 0.1 mg PO ONETIME ONE Stop: 07/07/18 20:18 Last Admin: 07/07/18 20:38 Dose: 0.1 mg Clonidine HCl (Catapres) 0.1 mg PO BID [facility] Clonidine HCl (Catapres) 0.1 mg PO ONETIME ONE Stop: 07/07/18 22:40 Last Admin: 07/07/18 22:54 Dose: Not Given Clonidine HCl (Catapres) 0.2 mg PO BEDTIME [facility] Last Admin: 07/07/18 23:38 Dose: 0.2 mg Clonidine HCl (Catapres) 0.1 mg PO ONETIME ONE Stop: 07/08/18 03:50 Last Admin: 07/08/18 04:03 Dose: 0.1 mg Clonidine HCl (Catapres) 0.2 mg PO BID [facility] Hydromorphone HCl (Dilaudid) 1 mg IVPUSH ONETIME ONE Stop: 07/07/18 19:12 Last Admin: 07/07/18 19:24 Dose: 1 mg Hydromorphone HCl (Dilaudid) 1 mg IVPUSH ONETIME ONE Stop: 07/07/18 20:43 Last Admin: 07/07/18 20:53 Dose: 1 mg Hydromorphone HCl (Dilaudid) 1 mg IVPUSH ONETIME ONE Stop: 07/08/18 15:36 Last Admin: 07/08/18 15:36 Dose: 1 mg Sodium Chloride (Normal Saline) 1,000 mls @ 999 mls/hr IV STAT ONE Stop: 07/07/18 20:11 Last Admin: 07/07/18 19:24 Dose: 999 mls/hr Ceftriaxone Sodium/Dextrose 1 (gm/ Premix) 50 mls @ 100 mls/hr IV ONETIME ONE Stop: 07/07/18 21:28 Last Admin: 07/07/18 21:29 Dose: 100 mls/hr Insulin Aspart (Novolog) 0 unit SUBCUT Q6H [facility]; Protocol Last Admin: 07/08/18 15:44 Dose: Not Given Insulin Aspart (Novolog) 0 unit SUBCUT TIDAC [facility]; Protocol Insulin Aspart (Novolog) 0 unit SUBCUT ACBREAKFASTANDBED [facility]; Protocol Losartan Potassium (Cozaar) 25 mg PO DAILY [facility] Last Admin: 07/08/18 11:47 Dose: Not Given Non-Formulary Medication (Amlodipine Besylate) 1 tab PO DAILY [facility] Last Admin: 07/08/18 11:21 Dose: Not Given Non-Formulary Medication (Calcium Carbonate [Calcium]) 1 gm PO DAILY [facility] Last Admin: 07/08/18 11:21 Dose: Not Given Non-Formulary Medication (Insulin Glarg,Human.Rec.Analog) 20 units SQ DAILY [facility] Last Admin: 07/08/18 11:21 Dose: Not Given Ondansetron HCl (Zofran) 4 mg IVPUSH ONETIME ONE Stop: 07/07/18 19:12 Last Admin: 07/07/18 19:24 Dose: 4 mg Oxycodone HCl (Oxycodone) 10 mg PO ONETIME ONE Stop: 07/08/18 03:48 Last Admin: 07/08/18 04:01 Dose: 10 mg Pantoprazole Sodium (Protonix Iv) 80 mg IVPUSH .BOLUS ONE Stop: 07/07/18 19:12 Last Admin: 07/07/18 19:24 Dose: 80 mg <Poli Moise - Last Filed: 07/13/18 19:05> - Patient Data Vitals - Most Recent: Last Vital Signs Temp 36.9 C 07/09/18 09:15 Pulse 94 07/09/18 09:15 Resp 16 07/09/18 09:15 BP 183/87 H 07/09/18 11:54 Pulse Ox 94 L 07/09/18 09:15 Med Orders - Current: Current Medications Discontinued Medications Alprazolam (Xanax) 0.5 mg PO BID PRN PRN Reason: Anxiety Last Admin: 07/08/18 22:41 Dose: 0.5 mg Amlodipine Besylate (Norvasc) 10 mg PO DAILY [facility] Last Admin: 07/09/18 11:54 Dose: 10 mg Aspirin (Aspirin) 81 mg PO DAILY [facility] Last Admin: 07/08/18 22:42 Dose: Not Given Calcium Carbonate/Glycine (Oyster Shell Calcium) 1,000 mg PO DAILY@0800 [facility] Last Admin: 07/09/18 09:17 Dose: 1,000 mg Clonidine HCl (Catapres) 0.1 mg PO ONETIME ONE Stop: 07/07/18 20:18 Last Admin: 07/07/18 20:38 Dose: 0.1 mg Clonidine HCl (Catapres) 0.1 mg PO BID [facility] Clonidine HCl (Catapres) 0.1 mg PO ONETIME ONE Stop: 07/07/18 22:40 Last Admin: 07/07/18 22:54 Dose: Not Given Clonidine HCl (Catapres) 0.2 mg PO BEDTIME [facility] Last Admin: 07/07/18 23:38 Dose: 0.2 mg Clonidine HCl (Catapres) 0.1 mg PO ONETIME ONE Stop: 07/08/18 03:50 Last Admin: 07/08/18 04:03 Dose: 0.1 mg Clonidine HCl (Catapres) 0.2 mg PO BID [facility] Last Admin: 07/09/18 09:15 Dose: 0.2 mg Clonidine HCl (Catapres) 0.1 mg PO DAILY@1600 [facility] Clonidine HCl (Catapres) 0.2 mg PO BID [facility] Hydromorphone HCl (Dilaudid) 1 mg IVPUSH ONETIME ONE Stop: 07/07/18 19:12 Last Admin: 07/07/18 19:24 Dose: 1 mg Hydromorphone HCl (Dilaudid) 1 mg IVPUSH ONETIME ONE Stop: 07/07/18 20:43 Last Admin: 07/07/18 20:53 Dose: 1 mg Hydromorphone HCl (Dilaudid) 1 mg IVPUSH ONETIME ONE Stop: 07/08/18 15:36 Last Admin: 07/08/18 15:36 Dose: 1 mg Sodium Chloride (Normal Saline) 1,000 mls @ 999 mls/hr IV STAT ONE Stop: 07/07/18 20:11 Last Admin: 07/07/18 19:24 Dose: 999 mls/hr Sodium Chloride (Normal Saline) 1,000 mls @ 150 mls/hr IV ASDIRECTED [facility] Last Admin: 07/09/18 05:53 Dose: 150 mls/hr Ceftriaxone Sodium/Dextrose 1 (gm/ Premix) 50 mls @ 100 mls/hr IV ONETIME ONE Stop: 07/07/18 21:28 Last Admin: 07/07/18 21:29 Dose: 100 mls/hr Ceftriaxone Sodium 1 gm/ (Sodium Chloride) 50 mls @ 100 mls/hr IV Q24H [facility] Last Admin: 07/08/18 21:01 Dose: 100 mls/hr Pantoprazole Sodium 40 mg/ (Sodium Chloride) 10 mls @ 300 mls/hr IVPUSH Q24H [facility] Last Admin: 07/09/18 09:36 Dose: 300 mls/hr Insulin Aspart (Novolog) 0 unit SUBCUT Q6H [facility]; Protocol Last Admin: 07/08/18 15:44 Dose: Not Given Insulin Aspart (Novolog) 0 unit SUBCUT TIDAC [facility]; Protocol Insulin Aspart (Novolog) 0 unit SUBCUT ACBREAKFASTANDBED [facility]; Protocol Insulin Aspart (Novolog) 0 unit SUBCUT QIDACANDBED [facility]; Protocol Last Admin: 07/09/18 12:33 Dose: 2 intnl unit Insulin Glargine (Lantus Solostar) 20 units SUBCUT DAILY [facility] Last Admin: 07/09/18 09:34 Dose: 20 units Losartan Potassium (Cozaar) 25 mg PO DAILY [facility] Last Admin: 07/08/18 11:47 Dose: Not Given Losartan Potassium (Cozaar) 25 mg PO DAILY [facility] Last Admin: 07/09/18 09:16 Dose: 25 mg Non-Formulary Medication (Amlodipine Besylate) 1 tab PO DAILY [facility] Last Admin: 07/08/18 11:21 Dose: Not Given Non-Formulary Medication (Calcium Carbonate [Calcium]) 1 gm PO DAILY [facility] Last Admin: 07/08/18 11:21 Dose: Not Given Non-Formulary Medication (Insulin Glarg,Human.Rec.Analog) 20 units SQ DAILY [facility] Last Admin: 07/08/18 11:21 Dose: Not Given Ondansetron HCl (Zofran) 4 mg IVPUSH ONETIME ONE Stop: 07/07/18 19:12 Last Admin: 07/07/18 19:24 Dose: 4 mg Ondansetron HCl (Zofran) 4 mg IVPUSH Q4H PRN PRN Reason: Nausea Last Admin: 07/09/18 03:52 Dose: 4 mg Oxycodone HCl (Oxycodone) 10 mg PO Q6H PRN PRN Reason: Pain (moderate 4-6) Last Admin: 07/09/18 09:11 Dose: 10 mg Oxycodone HCl (Oxycodone) 10 mg PO ONETIME ONE Stop: 07/08/18 03:48 Last Admin: 07/08/18 04:01 Dose: 10 mg Pantoprazole Sodium (Protonix Iv) 80 mg IVPUSH .BOLUS ONE Stop: 07/07/18 19:12 Last Admin: 07/07/18 19:24 Dose: 80 mg Sodium Chloride (Saline Flush) 10 ml FLUSH ASDIRECTED PRN PRN Reason: Keep Vein Open Sodium Chloride (Saline Flush) 2.5 ml FLUSH ASDIRECTED PRN PRN Reason: Keep Vein Open - Free Text/Narrative Note: I have examined the patient. I have discussed findings and treatment plan with resident. I agree with the assessment and plan outlined in the following resident's note.
[2018-07-09] MEDS: amLODIPine 5 MG Tab PO SCH ×2 (11:51→11:54)
[2018-07-09] MEDS ORDERED: cloNIDine 0.1 MG Tab PO SCH (16:00)
== END 2018-07-09 13:00 | disposition home or self-care (01) ==
LOC: MW.ED 18:58 → MW.MS 22:24
PROVIDERS: ADMIT Internal Medicine; ATTEND Internal Medicine
DX: K29.70 Gastritis, unspecified, without bleeding (principal); N39.0 Urinary tract infection, site not specified; I12.9 Hypertensive chronic kidney disease with stage 1 through stage 4 chronic kidney disease, or unspecified chronic kidney disease; E10.22 Type 1 diabetes mellitus with diabetic chronic kidney disease; N18.9 Chronic kidney disease, unspecified; N17.9 Acute kidney failure, unspecified; Z88.5 Allergy status to narcotic agent; Z88.8 Allergy status to other drugs, medicaments and biological substances; Z79.4 Long term (current) use of insulin; Z79.82 Long term (current) use of aspirin; Z79.899 Other long term (current) drug therapy
CPT/HCPCS: 36415; 74176; 80048; 80053; 80305; 81001; 82009; 82150; 82247; 82803; 82962; 83605; 83690; 84075; 84450; 84460; 84484; 85025; 86677; 87086; 93005; 96361; 96365; 96375; 96376; 99285; A9270; C9113; G0378; J0696; J1170; J1815; J2405; J7040; J7050